=== PATIENT | male | born 1990 | race Caucasian/White ===

== ENCOUNTER 2017-10-11 09:07 | Inpatient (IN) | payer OTHER ==
[2017-10-11 09:26] VITALS: BMI 23.0
--- NOTE | 2017-10-11 09:37 | HP ---
COWS - Scale Resting Pulse: 1= [place] 81-100 Sweatin= Chills/Flushing Restless Observation: 1= Difficult to Sit Still Pupil Size: 0= Normal to Room Light Bone or Joint Aches: 2= Severe Diffuse Aches Runny Nose/ Eye Tearin= Nasal Congestion GI Upset > 30mins: 1= Stomach Cramp Tremor Observation: 2= Slight Tremor Visible Yawning Observation: 1= 1-2x During Session Anxiety or Irritability: 1=Feels Anxious/Irritable Goose Flesh Skin: 0=Smooth Skin COWS Score: 11 CIWA Score - CIWA Score Nausea/Vomitin-Mild Nausea/No Vomiting Muscle Tremors: 4-Moderate,w/Arms Extend Anxiety: 4-Mod. Anxious/Guarded Agitation: 1-Slight > Activity Paroxysmal Sweats: 1-Minimal Palms Moist Orientation: 1-Uncertain about Date Tacttile Disturbances: 1-Very Mild Itch/Numbness Auditory Disturbances: 1-Very Mild Visual Disturbances: 0-None Headache: 2-Mild CIWA-Ar Total Score: 16 Admission ROS BHS - HPI Chief Complaint: I'm just tired, I want to stop using and stop thinking about how to get my drugs Allergies/Adverse Reactions: Allergies Allergy/AdvReac Type Severity Reaction Status Date / Time No Known Allergies Allergy Verified 10/11/17 09:54 History of Present Illness: 27 yo gentleman here for detox from opiates and alprazolam - previous detox here in April 2016, previously tried suboxone program but relapsed. Seizure once at age 16. Exam Limitations: Clinical Condition - Ebola screening Have you traveled outside of the country in the last 21 days: No Have you had contact with anyone from an Ebola affected area: No Have you been sick,other than usual withdrawal symptoms: No Do you have a fever: No - Review of Systems Constitutional: Chills, Loss of Appetite, Changes in sleep, Weakness EENT: reports: Nose Congestion Respiratory: reports: No Symptoms reported Cardiac: reports: No Symptoms Reported GI: reports: Nausea, Poor Appetite : reports: No Symptoms Reported Musculoskeletal: reports: Joint Pain, Muscle Pain Integumentary: reports: No Symptoms Reported Neuro: reports: Headache, Tremors Endocrine: reports: No Symptoms Reported, Change in Weight Psychiatric: reports: Judgement Intact, Mood/Affect Appropiate, Anxious Other Systems: Reviewed and Negative Patient History - Patient Medical History Hx Anemia: No Hx Asthma: No Hx Chronic Obstructive Pulmonary Disease (COPD): No Hx Cancer: No Hx Cardiac Disorders: No Hx Congestive Heart Failure: No Hx Hypertension: No Hx Hypercholesterolemia: No Hx Pacemaker: No HX Cerebrovascular Accident: No Hx Seizures: Yes (one time age 16) Hx Dementia: No Hx Diabetes: No Hx Gastrointestinal Disorders: No Hx Liver Disease: No Hx Genitourinary Disorders: No Hx Sexually Transmitted Disorders: No Hx Renal Disease (ESRD): No Hx Thyroid Disease: No Hx Human Immunodeficiency Virus (HIV): No Hx Hepatitis C: No Hx Depression: Yes (with anxiety, never hospitalized) Hx Suicide Attempt: No Hx Bipolar Disorder: No Hx Schizophrenia: No - Patient Surgical History Past Surgical History: Yes Hx Orthopedic Surgery: Yes (R knee; arthroscopic surgery 2010) Anesthesia Reaction: No - PPD History Previous Implant?: Yes Documented Results: Negative w/proof Implanted On Prior [facility] Admission?: No Date: 03/19/16 PPD to be Administered?: Yes - Reproductive History Patient is a Female of Child Bearing Age (11 -55 yrs old): No (male) - Smoking Cessation Smoking history: Current every day smoker Have you smoked in the past 12 months: Yes Aproximately how many cigarettes per day: 10 Hx Chewing Tobacco Use: No Initiated information on smoking cessation: Yes 'Breaking Loose' booklet given: 10/11/17 (give on floor) - Substance & Tx. History Hx Alcohol Use: No Hx Substance Use: Yes Substance Use Type: Cocaine, Heroin, Marijuana, Opiates, Tranquilizers Hx Substance Use Treatment: Yes (detox, suboxone, outpatient rehab) - Substances Abused Heroin Route: Injection Frequency: Daily Amount used: 2 bundles Age of first use: 20 Date of Last Use: 10/10/17 Alprazolam (Xanax) Route: Oral Frequency: Daily Amount used: 5mg Age of first use: 17 Date of Last Use: 10/10/17 Marijuana/Hashish Route: Smoking Frequency: 1-2 times per week Amount used: 1 joint Age of first use: 14 Date of Last Use: 10/10/17 Crack Route: Smoking Frequency: 1-2 times per week Amount used: $50 Age of first use: 27 Date of Last Use: 10/08/17 Family Disease History - Family Disease History Family Disease History: Diabetes: Mother, Heart Disease: Father (HTN, skin cancer, alcohol/cocaine), CA: Father, Other: Father, Sister (heroin) Admission Physical Exam [facility] - Vital Signs Vital Signs: Vital Signs - 24 hr 10/11/17 09:20 Temperature 98.6 F Pulse Rate 86 Respiratory 16 Rate Blood Pressure 120/70 - Physical General Appearance: Yes: Appropriately Dressed, Moderate Distress, Thin, Tremorous, Anxious HEENTM: Yes: Hearing grossly Normal, Normal ENT Inspection, Normocephalic, Normal Voice, Pharynx Normal, Nasal Congestion Respiratory: Yes: Normal Breath Sounds, No Respiratory Distress Neck: Yes: No masses,lesions,Nodules, Supple Breast: Yes: Breast Exam Deferred Cardiology: Yes: Regular Rhythm, Regular Rate Abdominal: Yes: Non Tender, Flat Genitourinary: Yes: Within Normal Limits Back: Yes: Normal Inspection Musculoskeletal: Yes: full range of Motion, Gait Steady, Back pain, Muscle Pain Extremities: Yes: Normal Capillary Refill, Normal Inspection, Normal Range of Motion Neurological: Yes: Alert, Motor Strength 5/5, Normal Mood/Affect, Normal Response Integumentary: Yes: Normal Color, Warm, Track Tao (right arm - no erythema or abscess noted) Lymphatic: Yes: Within Normal Limits - Diagnostic (1) Opioid dependence with withdrawal Current Visit: Yes Status: Acute (2) Sedative, hypnotic or anxiolytic dependence with withdrawal, uncomplicated Current Visit: Yes Status: Acute (3) Crack cocaine use Current Visit: Yes Status: Acute (4) Marijuana abuse Current Visit: Yes Status: Acute (5) Nicotine dependence Current Visit: Yes Status: Acute Qualifiers: Nicotine product type: cigarettes Substance use status: uncomplicated Qualified Code(s): F17.210 - Nicotine dependence, cigarettes, uncomplicated Cleared for Admission [facility] - Detox or Rehab [facility] Level of Care: Medically Managed Detox Regimen/Protocol: Methadone/Valium [facility] Breath Alcohol Content Breath Alcohol Content: 0 Urine Drug Screen - Results Drug Screen Negative: No Urine Drug Screen Results: THC-Marijuana, PARIS-Cocaine, OPI-Opiates, BZO- Benzodiazepines
[2017-10-11] MEDS ORDERED: IBUPROFEN 400 MG TABLET (FP) PO PRN (09:47)
[2017-10-11] MEDS ORDERED: LOPERAMIDE HCL 2 MG CAPSULE PO PRN (09:47)
[2017-10-11] MEDS ORDERED: MAG HYDROX/AL HYDROX/SIMETH 30 ML UNIT-DOSE CUP PO PRN (09:47)
[2017-10-11] MEDS ORDERED: guaiFENesin/D-METHORPHAN HB 10 ML UNIT-DOSE CUPS PO PRN (09:47)
[2017-10-11] MEDS ORDERED: P-EPHED 60MG/TRIPROLIDI 2.5MG TABLET PO PRN (09:47)
[2017-10-11] MEDS ORDERED: MAGNESIUM HYDROX 2400MG/30ML ORAL SUSPENSION 30 ML CUP PO PRN (09:47)
[2017-10-11] MEDS ORDERED: MENTHOL/PHENOL 1 EACH UD MM PRN (09:47)
[2017-10-11] MEDS ORDERED: MAGNESIUM CITRATE 300 ML BOTTLE PO PRN (09:47)
[2017-10-11] MEDS: PRENATAL VITAMINS W/ FOLIC ACID TABLET (FP) PO SCH (11:29)
[2017-10-11] MEDS ORDERED: METHADONE HCL 10 MG TABLET (FOR DETOX USE ONLY) PO ONE ×2 (12:00→23:00)
[2017-10-11] MEDS ORDERED: diazePAM 5 MG TABLET PO ONE (12:00)
[2017-10-11] MEDS: diazePAM 5 MG TABLET PO SCH ×2 (14:42→22:40)
[2017-10-11] MEDS: diazePAM 5 MG TABLET PO PRN (17:08)
[2017-10-11] MEDS: hydrOXYzine PAMOATE 25 MG CAPSULE (FP) PO PRN (19:23)
[2017-10-11] MEDS: THIAMINE HCL 100 MG TABLET (FP) PO SCH (22:39)
[2017-10-12 00:20] LABS: URINE APPEARANCE SLCLOUDY; URINE BILIRUBIN NEGATIVE (NEGATIVE); URINE BLOOD NEGATIVE (NEGATIVE); URINE COLOR DKYELLOW; URINE GLUCOSE (UA) NEGATIVE (NEGATIVE); URINE KETONE NEGATIVE (NEGATIVE); URINE LEUK ESTERASE TRACE (NEGATIVE); URINE NITRITE POSITIVE (NEGATIVE); URINE PROTEIN NEGATIVE (NEGATIVE); URINE UROBILINOGEN NEGATIVE mg/dL (0.2-1.0)
[2017-10-12 00:45] LABS: URINE BACTERIA RARE /hpf (NONE SEEN); URINE MUCUS RARE; URINE RBC 1 /hpf (0-3); URINE WBC 5 /hpf (3-5)
[2017-10-12] MEDS: diazePAM 5 MG TABLET PO SCH ×4 (05:30→22:30)
--- NOTE | 2017-10-12 08:30 | CONSULT ---
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 Refer to adiction counselor's note for further information Medical History: Significant for history of one seizure episode at age 16 and arthroscopic surgery right knee 4 years ago. Smokes 10 cigarettes daily Psychiatric History: Patient's history remains consistent. He denies history of psychiatric hospitalizations.He endorses an enduring history of depression as early as age 9 (treated with zoloft at the time).Discontinued treatment due to an intolerable side effect (suicidal ideation).No recent contact with mental health care providers.Off medications for years.Mr Del Rosario indicates that he was able to manage himself in the community without any significant crisis.No history of suicide attempts. At present reports feeling well but sleeping poorly. Request to be ordered Ambien as he responded favorably to it in the past (effectiveness & tolerability) Physical/Sexual Abuse/Trauma History: Denies history of verbal, physical or sexual abuse as well as DV relationship. No service Additional Comment: Reports history of multiple previoys arrests including one felony conviction. Claims that the felony charged was dropped and he has nothing in his record Mental Status Exam - Mental Status Exam Alert and Oriented to: Time, Place, Person Cognitive Function: Fair Patient Appearance: Well Groomed Mood: Hopeful, Euthymic Patient Behavior: Cooperative Speech Pattern: Clear Voice Loudness: Normal Thought Process: Intact, Goal Oriented Hallucinations: Denies Suicidal Ideation: Denies Homicidal Ideation: Denies Insight/Judgement: Poor Sleep: Poorly Appetite: Good Muscle strength/Tone: Normal Gait/Station: Normal Psychiatric Findings - Problem List ([place] 1, 2,3) (1) Dysthymic disorder Current Visit: Yes Status: Chronic (2) Substance-induced sleep disorder Current Visit: No Status: Acute (3) Opioid dependence with withdrawal Current Visit: Yes Status: Acute (4) Sedative, hypnotic or anxiolytic dependence with withdrawal, uncomplicated Current Visit: Yes Status: Acute (5) Cocaine dependence Current Visit: Yes Status: Acute (6) Cannabis abuse Current Visit: Yes Status: Acute (7) Nicotine dependence Current Visit: Yes Status: Acute Qualifiers: Nicotine product type: cigarettes Substance use status: uncomplicated Qualified Code(s): F17.210 - Nicotine dependence, cigarettes, uncomplicated (8) History of arthroscopic knee surgery Current Visit: Yes Status: Chronic - Initial Treatment Plan Initial Treatment Plan: 1) Start Ambien 10 mg po HS prn for insomnia. 2) continue inpatient detoxification
--- NOTE | 2017-10-12 08:56 | EKG ---
Test Reason : Blood Pressure : / mmHG Vent. Rate : 064 BPM Atrial Rate : 064 BPM P-R Int : 144 ms QRS Dur : 084 ms QT Int : 398 ms P-R-T Axes : 062 042 043 degrees QTc Int : 410 ms NORMAL SINUS RHYTHM NORMAL ECG NO PREVIOUS ECGS AVAILABLE Confirmed by RENAE GARCIAS MD ([id number]) on 10/12/2017 8:55:43 AM Referred By: Confirmed By:RENAE GARCIAS MD
[2017-10-12] MEDS ORDERED: METHADONE HCL 10 MG TABLET (FOR DETOX USE ONLY) PO SCH (10:00)
[2017-10-12 10:11] LABS: MCH 27.9 pg (25.7-33.7); MCHC 33.5 g/dl (32.0-35.9); MEAN CELL VOLUME 83.3 fl (80-96); PLATELET COUNT 349 K/MM3 (134-434); RDW 13.3 % (11.9-15.9); WHITE BLOOD COUNT 12.3 K/mm3 (4.0-10.0)
[2017-10-12 10:17] LABS: ALBUMIN 3.9 g/dl (3.4-5.0); ALK PHOS 124 U/L (45-117); ANION GAP 8 (8-16); BILIRUBIN,TOTAL 0.8 mg/dL (0.2-1.0); CALCIUM 9.8 mg/dL (8.5-10.1); CO2 29 mmol/L (21-32); CREATININE 0.9 mg/dL (0.7-1.3); GLUCOSE,RANDOM 96 mg/dL (74-106); SGOT/AST 16 U/L (15-37); SGPT/ALT 32 U/L (12-78)
[2017-10-12] MEDS: diazePAM 5 MG TABLET PO PRN ×2 (10:52→17:03)
[2017-10-12] MEDS: PRENATAL VITAMINS W/ FOLIC ACID TABLET (FP) PO SCH (10:53)
[2017-10-12 11:19] LABS: HIV 1 & 2 AB NEGATIVE; HIV 1 AGp24 NEGATIVE
[2017-10-12] MEDS: NICOTINE POLACRILEX 4 MG GUM BUC PRN (12:17)
[2017-10-12 13:24] LABS: URINE LEUK ESTERASE NEGATIVE (NEGATIVE)
--- NOTE | 2017-10-12 14:35 | PN ---
S CIWA - CIWA Score Nausea/Vomitin-No Nausea/No Vomiting Muscle Tremors: 4-Moderate,w/Arms Extend Anxiety: 4-Mod. Anxious/Guarded Agitation: 4-Moderately Restless Paroxysmal Sweats: No Perspiration Orientation: 0-Oriented Tacttile Disturbances: 0-None Auditory Disturbances: 0-None Visual Disturbances: 0-None Headache: 2-Mild CIWA-Ar Total Score: 14 BHS COWS - Scale Resting Pulse: 0= [place] 80 or Below Sweatin=Flushed/Facial Moisture Restless Observation: 3= Extraneous Movement Pupil Size: 0= Normal to Room Light Bone or Joint Aches: 2= Severe Diffuse Aches Runny Nose/ Eye Tearin= Runny Nose/Eyes GI Upset > 30mins: 3= Vomiting/Diarrhea Tremor Observation of Outstretched Hands: 2= Slight Tremor Visible Yawning Observation: 0= None Anxiety or Irritability: 2=Irritable/Anxious Goose Flesh Skin: 0=Smooth Skin COWS Score: 16 BHS Progress Note (SOAP) Subjective: Interrupted sleep, chills, body ache, diarrhea, sweating Objective: 10/12/17 14:29 Last Vital Signs Temp Pulse Resp BP Pulse Ox 97.7 F 79 18 111/73 10/12/17 14:11 10/12/17 14:11 10/12/17 14:11 10/12/17 14:11 Laboratory Tests 10/11/17 10/12/17 10/12/17 14:30 06:00 06:00 WBC 12.3 H RBC 5.63 H Hgb 15.7 Hct 46.9 MCV 83.3 MCH 27.9 MCHC 33.5 RDW 13.3 Plt Count 349 D MPV 8.0 Sodium Potassium Chloride Carbon Dioxide Anion Gap BUN Creatinine Creat Clearance w eGFR Random Glucose Calcium Total Bilirubin AST ALT Alkaline Phosphatase Total Protein Albumin Urine Color Dkyellow Urine Appearance Slcloudy Urine pH 6.0 Ur Specific [place] 1.025 Urine Protein Negative Urine Glucose (UA) Negative Urine Ketones Negative Urine Blood Negative Urine Nitrite Positive Urine Bilirubin Negative Urine Urobilinogen Negative Ur Leukocyte Esterase Negative Urine WBC (Auto) 5 Urine RBC (Auto) 1 Ur Epithelial Cells Rare Urine Bacteria Rare Urine Mucus Rare RPR Titer HIV 1&2 Antibody Screen Negative HIV P24 Antigen Negative 10/12/17 10/12/17 06:00 06:00 WBC RBC Hgb Hct MCV MCH MCHC RDW Plt Count MPV Sodium 140 Potassium 4.4 Chloride 103 Carbon Dioxide 29 Anion Gap 8 BUN 11 D Creatinine 0.9 Creat Clearance w eGFR > 60 Random Glucose 96 Calcium 9.8 Total Bilirubin 0.8 D AST 16 D ALT 32 D Alkaline Phosphatase 124 H Total Protein 8.0 Albumin 3.9 Urine Color Urine Appearance Urine pH Ur Specific [place] Urine Protein Urine Glucose (UA) Urine Ketones Urine Blood Urine Nitrite Urine Bilirubin Urine Urobilinogen Ur Leukocyte Esterase Urine WBC (Auto) Urine RBC (Auto) Ur Epithelial Cells Urine Bacteria Urine Mucus RPR Titer Nonreactive HIV 1&2 Antibody Screen HIV P24 Antigen Labs noted: wbc 12.3, UA: nitrite positive Assessment: 10/12/17 14:35 Withdrawal symptoms Noted with leukocytosis and UTI Plan: Continue detox Leukocytosis: most likely secondary to UTI Acute UTI: encouraged to drink lots of water (water pitcher ordered), send urine culture stat, start cipro 500mg PO q12hr x 10 days, adjust antibiotic if warranted based upon urine c&s result, follow up with PCP in 1-2 weeks post antibiotic completion for referral to Urologist
[2017-10-12] MEDS ORDERED: CIPROFLOXACIN 500 MG TABLET (RESTRICTED TO ID) PO SCH (14:45)
[2017-10-12] MEDS: LEVOFLOXACIN 500 MG TABLET (FP) PO SCH (17:03)
[2017-10-12] MEDS: ZOLPIDEM TARTRATE 5 MG TABLET PO PRN (22:30)
[2017-10-12] MEDS: THIAMINE HCL 100 MG TABLET (FP) PO SCH (22:30)
[2017-10-13] MEDS: diazePAM 5 MG TABLET PO PRN ×2 (05:28→14:35)
[2017-10-13] MEDS: LEVOFLOXACIN 500 MG TABLET (FP) PO SCH (05:28)
[2017-10-13] MEDS: PRENATAL VITAMINS W/ FOLIC ACID TABLET (FP) PO SCH (10:43)
[2017-10-13] MEDS: diazePAM 5 MG TABLET PO SCH ×2 (10:44→22:46)
[2017-10-13] MEDS: METHADONE HCL 5 MG TABLET (FOR DETOX USE ONLY) PO SCH (10:44)
--- NOTE | 2017-10-13 12:42 | PN ---
[facility] CIWA - CIWA Score Nausea/Vomitin-No Nausea/No Vomiting Muscle Tremors: 4-Moderate,w/Arms Extend Anxiety: 4-Mod. Anxious/Guarded Agitation: 2 Paroxysmal Sweats: 3 Orientation: 0-Oriented Tacttile Disturbances: 2-Mild Itch/Numbness/Burn Auditory Disturbances: 2-Mild Harshness/Frighten Visual Disturbances: 0-None Headache: 0-None Present CIWA-Ar Total Score: 17 S COWS - Scale Resting Pulse: 0= [place] 80 or Below Sweatin=Flushed/Facial Moisture Restless Observation: 1= Difficult to Sit Still Pupil Size: 0= Normal to Room Light Bone or Joint Aches: 0= None Runny Nose/ Eye Tearin= None GI Upset > 30mins: 1= Stomach Cramp Tremor Observation of Outstretched Hands: 2= Slight Tremor Visible Yawning Observation: 1= 1-2x During Session Anxiety or Irritability: 2=Irritable/Anxious Goose Flesh Skin: 3=Piloerection COWS Score: 12 [facility] Progress Note (SOAP) Subjective: Tremors, Interrupted Sleep, Sweating, Gooseflesh, Chills. Objective: PT. A & O X 3, OBSERVED AMBULATING ON UNIT. NO ACUTE DISTRESS. 10/13/17 12:39 Vital Signs Temperature 97.8 F 10/13/17 09:27 Pulse Rate 72 10/13/17 09:27 Respiratory Rate 18 10/13/17 09:27 Blood Pressure 126/72 10/13/17 09:27 O2 Sat by Pulse Oximetry (%) Laboratory Tests 10/11/17 10/12/17 10/12/17 14:30 06:00 06:00 WBC 12.3 H RBC 5.63 H Hgb 15.7 Hct 46.9 MCV 83.3 MCH 27.9 MCHC 33.5 RDW 13.3 Plt Count 349 D MPV 8.0 Sodium Potassium Chloride Carbon Dioxide Anion Gap BUN Creatinine Creat Clearance w eGFR Random Glucose Calcium Total Bilirubin AST ALT Alkaline Phosphatase Total Protein Albumin Urine Color Dkyellow Urine Appearance Slcloudy Urine pH 6.0 Ur Specific [place] 1.025 Urine Protein Negative Urine Glucose (UA) Negative Urine Ketones Negative Urine Blood Negative Urine Nitrite Positive Urine Bilirubin Negative Urine Urobilinogen Negative Ur Leukocyte Esterase Negative Urine WBC (Auto) 5 Urine RBC (Auto) 1 Ur Epithelial Cells Rare Urine Bacteria Rare Urine Mucus Rare RPR Titer HIV 1&2 Antibody Screen Negative HIV P24 Antigen Negative 10/12/17 10/12/17 06:00 06:00 WBC RBC Hgb Hct MCV MCH MCHC RDW Plt Count MPV Sodium 140 Potassium 4.4 Chloride 103 Carbon Dioxide 29 Anion Gap 8 BUN 11 D Creatinine 0.9 Creat Clearance w eGFR > 60 Random Glucose 96 Calcium 9.8 Total Bilirubin 0.8 D AST 16 D ALT 32 D Alkaline Phosphatase 124 H Total Protein 8.0 Albumin 3.9 Urine Color Urine Appearance Urine pH Ur Specific [place] Urine Protein Urine Glucose (UA) Urine Ketones Urine Blood Urine Nitrite Urine Bilirubin Urine Urobilinogen Ur Leukocyte Esterase Urine WBC (Auto) Urine RBC (Auto) Ur Epithelial Cells Urine Bacteria Urine Mucus RPR Titer Nonreactive HIV 1&2 Antibody Screen HIV P24 Antigen LABS NOTED. RESULTS OF URINE CULTURE PENDING. CBC FOR REPEAT TOMORROW AM. 10/13/17 12:41 Assessment: 10/13/17 12:39 WITHDRAWAL SYMPTOMS. LEUKOCYTOSIS. 10/13/17 12:42 Plan: CONTINUE DETOX. INCREASE DAILY PO FLUID INTAKE.
[2017-10-13] MEDS: ZOLPIDEM TARTRATE 5 MG TABLET PO PRN (22:46)
[2017-10-13] MEDS: THIAMINE HCL 100 MG TABLET (FP) PO SCH (22:46)
[2017-10-13] MEDS: NICOTINE POLACRILEX 4 MG GUM BUC PRN (23:36)
[2017-10-14] MEDS: hydrOXYzine PAMOATE 25 MG CAPSULE (FP) PO PRN (00:52)
[2017-10-14] MEDS: LEVOFLOXACIN 500 MG TABLET (FP) PO SCH (05:34)
--- NOTE | 2017-10-14 09:16 | PN ---
[facility] Progress Note (SOAP) Subjective: body ache sweating irritable insomnia Objective: 10/14/17 09:15 Vital Signs Temperature 96.9 F L 10/14/17 06:35 Pulse Rate 57 L 10/14/17 06:35 Respiratory Rate 18 10/14/17 06:35 Blood Pressure 108/57 10/14/17 06:35 O2 Sat by Pulse Oximetry (%) Laboratory Last Values WBC 12.3 K/mm3 (4.0-10.0) H 10/12/17 06:00 RBC 5.63 M/mm3 (4.00-5.60) H 10/12/17 06:00 Hgb 15.7 GM/dL (11.7-16.9) 10/12/17 06:00 Hct 46.9 % (35.4-49) 10/12/17 06:00 MCV 83.3 fl (80-96) 10/12/17 06:00 MCH 27.9 pg (25.7-33.7) 10/12/17 06:00 MCHC 33.5 g/dl (32.0-35.9) 10/12/17 06:00 RDW 13.3 % (11.9-15.9) 10/12/17 06:00 Plt Count 349 K/MM3 (134-434) D 10/12/17 06:00 MPV 8.0 fl (7.5-11.1) 10/12/17 06:00 Sodium 140 mmol/L (136-145) 10/12/17 06:00 Potassium 4.4 mmol/L (3.5-5.1) 10/12/17 06:00 Chloride 103 mmol/L (98-107) 10/12/17 06:00 Carbon Dioxide 29 mmol/L (21-32) 10/12/17 06:00 Anion Gap 8 (8-16) 10/12/17 06:00 BUN 11 mg/dL (7-18) D 10/12/17 06:00 Creatinine 0.9 mg/dL (0.7-1.3) 10/12/17 06:00 Creat Clearance w eGFR > 60 (>60) 10/12/17 06:00 Random Glucose 96 mg/dL (74-106) 10/12/17 06:00 Calcium 9.8 mg/dL (8.5-10.1) 10/12/17 06:00 Total Bilirubin 0.8 mg/dL (0.2-1.0) D 10/12/17 06:00 AST 16 U/L (15-37) D 10/12/17 06:00 ALT 32 U/L (12-78) D 10/12/17 06:00 Alkaline Phosphatase 124 U/L (45-117) H 10/12/17 06:00 Total Protein 8.0 g/dl (6.4-8.2) 10/12/17 06:00 Albumin 3.9 g/dl (3.4-5.0) 10/12/17 06:00 Urine Color Dkyellow 10/11/17 14:30 Urine Appearance Slcloudy 10/11/17 14:30 Urine pH 6.0 (5.0-8.0) 10/11/17 14:30 Ur Specific [place] 1.025 (1.001-1.035) 10/11/17 14:30 Urine Protein Negative (NEGATIVE) 10/11/17 14:30 Urine Glucose (UA) Negative (NEGATIVE) 10/11/17 14:30 Urine Ketones Negative (NEGATIVE) 10/11/17 14:30 Urine Blood Negative (NEGATIVE) 10/11/17 14:30 Urine Nitrite Positive (NEGATIVE) 10/11/17 14:30 Urine Bilirubin Negative (NEGATIVE) 10/11/17 14:30 Urine Urobilinogen Negative mg/dL (0.2-1.0) 10/11/17 14:30 Ur Leukocyte Esterase Negative (NEGATIVE) 10/11/17 14:30 Urine WBC (Auto) 5 /hpf (3-5) 10/11/17 14:30 Urine RBC (Auto) 1 /hpf (0-3) 10/11/17 14:30 Ur Epithelial Cells Rare /HPF (FEW) 10/11/17 14:30 Urine Bacteria Rare /hpf (NONE SEEN) 10/11/17 14:30 Urine Mucus Rare 10/11/17 14:30 RPR Titer Nonreactive (NONREACTIVE) 10/12/17 06:00 HIV 1&2 Antibody Screen Negative 10/12/17 06:00 HIV P24 Antigen Negative 10/12/17 06:00 lab noted Assessment: 10/14/17 09:15 withdrawal sx Plan: continue detox
[2017-10-14 10:01] LABS: MCH 28.2 pg (25.7-33.7); MCHC 34.1 g/dl (32.0-35.9); MEAN CELL VOLUME 82.7 fl (80-96); MEAN PLT VOLUME 7.1 fl (7.5-11.1); PLATELET COUNT 353 K/MM3 (134-434); RDW 13.3 % (11.9-15.9); WHITE BLOOD COUNT 10.4 K/mm3 (4.0-10.0)
[2017-10-14] MEDS: PRENATAL VITAMINS W/ FOLIC ACID TABLET (FP) PO SCH (10:42)
[2017-10-14] MEDS: diazePAM 5 MG TABLET PO SCH ×2 (10:42→22:09)
[2017-10-14] MEDS: METHADONE HCL 5 MG TABLET (FOR DETOX USE ONLY) PO SCH (10:42)
[2017-10-14 15:04] LABS: ACANTHOCYTES 0; ANISOCYTOSIS 0; BURR CELLS 0; CABBOT RINGS 0; HELMET CELLS 0; HOWELL-JOLLY BODIES 0; HYPOCHROMIA 0; MACROCYTOSIS 0; METAMYELOCYTE 0 % (0-2); MICROCYTOSIS 0; MYELOCYTE 1 % (0-2); OVALOCYTE 0; POIKILOCYTOSIS 0; POLYCHROMASIA 0; REACTIVE LYMPHOCYTES 5 % (0-80); SCHISTOCYTES 0; SPHEROCYTE 0; STOMATOCYTE 0; TARGET CELLS 0; TEAR DROP CELLS 0; TOXIC GRANULATION 0
[2017-10-14 15:37] LABS: PLATELET ESTIMATE ADEQUATE; TOTAL CELLS COUNTED 99
[2017-10-14] MEDS: ZOLPIDEM TARTRATE 5 MG TABLET PO PRN (22:09)
[2017-10-14] MEDS: THIAMINE HCL 100 MG TABLET (FP) PO SCH (22:09)
[2017-10-15] MEDS: ACETAMINOPHEN 325 MG TABLET (FP) PO PRN ×2 (03:25→18:27)
[2017-10-15] MEDS: LEVOFLOXACIN 500 MG TABLET (FP) PO SCH (06:39)
[2017-10-15] MEDS ORDERED: diazePAM 5 MG TABLET PO SCH (10:00)
[2017-10-15] MEDS ORDERED: METHADONE HCL 10 MG TABLET (FOR DETOX USE ONLY) PO SCH (10:00)
[2017-10-15] MEDS: PRENATAL VITAMINS W/ FOLIC ACID TABLET (FP) PO SCH (10:38)
--- NOTE | 2017-10-15 12:02 | PN ---
[facility] Progress Note (SOAP) Subjective: DECREASED ANXIETY,SWEATS. FATIGUE. Objective: 10/15/17 12:01 Vital Signs Temperature 97.5 F L 10/15/17 09:54 Pulse Rate 65 10/15/17 09:54 Respiratory Rate 18 10/15/17 09:54 Blood Pressure 118/74 10/15/17 09:54 O2 Sat by Pulse Oximetry (%) Laboratory Last Values WBC 10.4 K/mm3 (4.0-10.0) H 10/14/17 07:00 RBC 5.28 M/mm3 (4.00-5.60) 10/14/17 07:00 Hgb 14.9 GM/dL (11.7-16.9) 10/14/17 07:00 Hct 43.6 % (35.4-49) 10/14/17 07:00 MCV 82.7 fl (80-96) 10/14/17 07:00 MCH 28.2 pg (25.7-33.7) 10/14/17 07:00 MCHC 34.1 g/dl (32.0-35.9) 10/14/17 07:00 RDW 13.3 % (11.9-15.9) 10/14/17 07:00 Plt Count 353 K/MM3 (134-434) 10/14/17 07:00 MPV 7.1 fl (7.5-11.1) L D 10/14/17 07:00 Total Counted 99 10/14/17 07:00 Neutrophils % No Result Required. 10/14/17 07:00 Neutrophils % (Manual) 66.7 % (42.8-82.8) 10/14/17 07:00 Band Neutrophils % 0.0 % 10/14/17 07:00 Lymphocytes % No Result Required. 10/14/17 07:00 Lymphocytes % (Manual) 21.2 % (8-40) 10/14/17 07:00 Monocytes % (Manual) 4 % (3.8-10.2) 10/14/17 07:00 Eosinophils % (Manual) 2.0 % (0-4.5) 10/14/17 07:00 Basophils % (Manual) 0.0 % (0-2.0) 10/14/17 07:00 Myelocytes % (Man) 1 % (0-2) 10/14/17 07:00 Metamyelocytes 0 % (0-2) 10/14/17 07:00 Hypochromia 0 10/14/17 07:00 Toxic Granulation 0 10/14/17 07:00 Dohle Bodies 0 10/14/17 07:00 Platelet Estimate Adequate 10/14/17 07:00 Platelet Comment Retail Sales [employer] 10/14/17 07:00 Polychromasia 0 10/14/17 07:00 Poikilocytosis 0 10/14/17 07:00 Basophilic Stippling 0 10/14/17 07:00 Anisocytosis 0 10/14/17 07:00 Microcytosis 0 10/14/17 07:00 Macrocytosis 0 10/14/17 07:00 Spherocytes 0 10/14/17 07:00 Sickle Cells 0 10/14/17 07:00 Target Cells 0 10/14/17 07:00 Tear Drop Cells 0 10/14/17 07:00 Ovalocytes 0 10/14/17 07:00 Stomatocytes 0 10/14/17 07:00 Helmet Cells 0 10/14/17 07:00 [place] Bodies 0 10/14/17 07:00 [place] Rings 0 10/14/17 07:00 Luz Cells 0 10/14/17 07:00 Acanthocytes (Spur) 0 10/14/17 07:00 Fragmented RBCs 0 10/14/17 07:00 Schistocytes 0 10/14/17 07:00 Sodium 140 mmol/L (136-145) 10/12/17 06:00 Potassium 4.4 mmol/L (3.5-5.1) 10/12/17 06:00 Chloride 103 mmol/L (98-107) 10/12/17 06:00 Carbon Dioxide 29 mmol/L (21-32) 10/12/17 06:00 Anion Gap 8 (8-16) 10/12/17 06:00 BUN 11 mg/dL (7-18) D 10/12/17 06:00 Creatinine 0.9 mg/dL (0.7-1.3) 10/12/17 06:00 Creat Clearance w eGFR > 60 (>60) 10/12/17 06:00 Random Glucose 96 mg/dL (74-106) 10/12/17 06:00 Calcium 9.8 mg/dL (8.5-10.1) 10/12/17 06:00 Total Bilirubin 0.8 mg/dL (0.2-1.0) D 10/12/17 06:00 AST 16 U/L (15-37) D 10/12/17 06:00 ALT 32 U/L (12-78) D 10/12/17 06:00 Alkaline Phosphatase 124 U/L (45-117) H 10/12/17 06:00 Total Protein 8.0 g/dl (6.4-8.2) 10/12/17 06:00 Albumin 3.9 g/dl (3.4-5.0) 10/12/17 06:00 Urine Color Dkyellow 10/11/17 14:30 Urine Appearance Slcloudy 10/11/17 14:30 Urine pH 6.0 (5.0-8.0) 10/11/17 14:30 Ur Specific [place] 1.025 (1.001-1.035) 10/11/17 14:30 Urine Protein Negative (NEGATIVE) 10/11/17 14:30 Urine Glucose (UA) Negative (NEGATIVE) 10/11/17 14:30 Urine Ketones Negative (NEGATIVE) 10/11/17 14:30 Urine Blood Negative (NEGATIVE) 10/11/17 14:30 Urine Nitrite Positive (NEGATIVE) 10/11/17 14:30 Urine Bilirubin Negative (NEGATIVE) 10/11/17 14:30 Urine Urobilinogen Negative mg/dL (0.2-1.0) 10/11/17 14:30 Ur Leukocyte Esterase Negative (NEGATIVE) 10/11/17 14:30 Urine WBC (Auto) 5 /hpf (3-5) 10/11/17 14:30 Urine RBC (Auto) 1 /hpf (0-3) 10/11/17 14:30 Ur Epithelial Cells Rare /HPF (FEW) 10/11/17 14:30 Urine Bacteria Rare /hpf (NONE SEEN) 10/11/17 14:30 Urine Mucus Rare 10/11/17 14:30 RPR Titer Nonreactive (NONREACTIVE) 10/12/17 06:00 HIV 1&2 Antibody Screen Negative 10/12/17 06:00 HIV P24 Antigen Negative 10/12/17 06:00 Assessment: 10/15/17 12:02 WITHDRAWAL SX Plan: CONTINUE DETOX
[2017-10-15] MEDS: ZOLPIDEM TARTRATE 5 MG TABLET PO PRN (22:08)
[2017-10-15] MEDS: hydrOXYzine PAMOATE 25 MG CAPSULE (FP) PO PRN (22:08)
[2017-10-15] MEDS: THIAMINE HCL 100 MG TABLET (FP) PO SCH (22:08)
[2017-10-16] MEDS: LEVOFLOXACIN 500 MG TABLET (FP) PO SCH (05:31)
[2017-10-16] MEDS ORDERED: METHADONE HCL 5 MG TABLET (FOR DETOX USE ONLY) PO SCH (06:00)
[2017-10-16 06:23] VITALS: BP 103/60; PULSE 63; TEMP 97.2
--- NOTE | 2017-10-16 11:21 | DS ---
[facility] Detox Discharge Summary Admission Date: 10/11/17 Discharge Date: 10/16/17 - History Present History: Cannabis Dependence, Cocaine Dependence, Opioid Dependence, Sedative Dependence Additional Comments: DETOX COMPLETED. ALERT O X 3. NAD. PT INSTRUCTED TO FOLLOW UP WITH PMD DR BRASHER AT [place], [place] FOR MEDICAL MANAGEMENT. Pertinent Past History: HX ARTHROSCOPIC SX KNEE - Physical Exam Results Vital Signs: Vital Signs Temperature 97.2 F L 10/16/17 06:23 Pulse Rate 63 10/16/17 06:23 Respiratory Rate 16 10/16/17 06:23 Blood Pressure 103/60 10/16/17 06:23 O2 Sat by Pulse Oximetry (%) Pertinent Admission Physical Exam Findings: WITHDRAWAL SX Laboratory Last Values WBC 10.4 K/mm3 (4.0-10.0) H 10/14/17 07:00 RBC 5.28 M/mm3 (4.00-5.60) 10/14/17 07:00 Hgb 14.9 GM/dL (11.7-16.9) 10/14/17 07:00 Hct 43.6 % (35.4-49) 10/14/17 07:00 MCV 82.7 fl (80-96) 10/14/17 07:00 MCH 28.2 pg (25.7-33.7) 10/14/17 07:00 MCHC 34.1 g/dl (32.0-35.9) 10/14/17 07:00 RDW 13.3 % (11.9-15.9) 10/14/17 07:00 Plt Count 353 K/MM3 (134-434) 10/14/17 07:00 MPV 7.1 fl (7.5-11.1) L D 10/14/17 07:00 Total Counted 99 10/14/17 07:00 Neutrophils % No Result Required. 10/14/17 07:00 Neutrophils % (Manual) 66.7 % (42.8-82.8) 10/14/17 07:00 Band Neutrophils % 0.0 % 10/14/17 07:00 Lymphocytes % No Result Required. 10/14/17 07:00 Lymphocytes % (Manual) 21.2 % (8-40) 10/14/17 07:00 Monocytes % (Manual) 4 % (3.8-10.2) 10/14/17 07:00 Eosinophils % (Manual) 2.0 % (0-4.5) 10/14/17 07:00 Basophils % (Manual) 0.0 % (0-2.0) 10/14/17 07:00 Myelocytes % (Man) 1 % (0-2) 10/14/17 07:00 Metamyelocytes 0 % (0-2) 10/14/17 07:00 Hypochromia 0 10/14/17 07:00 Toxic Granulation 0 10/14/17 07:00 Dohle Bodies 0 10/14/17 07:00 Platelet Estimate Adequate 10/14/17 07:00 Platelet Comment High Scaler 10/14/17 07:00 Polychromasia 0 10/14/17 07:00 Poikilocytosis 0 10/14/17 07:00 Basophilic Stippling 0 10/14/17 07:00 Anisocytosis 0 10/14/17 07:00 Microcytosis 0 10/14/17 07:00 Macrocytosis 0 10/14/17 07:00 Spherocytes 0 10/14/17 07:00 Sickle Cells 0 10/14/17 07:00 Target Cells 0 10/14/17 07:00 Tear Drop Cells 0 10/14/17 07:00 Ovalocytes 0 10/14/17 07:00 Stomatocytes 0 10/14/17 07:00 Helmet Cells 0 10/14/17 07:00 [place] Bodies 0 10/14/17 07:00 [place] Rings 0 10/14/17 07:00 Luz Cells 0 10/14/17 07:00 Acanthocytes (Spur) 0 10/14/17 07:00 Fragmented RBCs 0 10/14/17 07:00 Schistocytes 0 10/14/17 07:00 Sodium 140 mmol/L (136-145) 10/12/17 06:00 Potassium 4.4 mmol/L (3.5-5.1) 10/12/17 06:00 Chloride 103 mmol/L (98-107) 10/12/17 06:00 Carbon Dioxide 29 mmol/L (21-32) 10/12/17 06:00 Anion Gap 8 (8-16) 10/12/17 06:00 BUN 11 mg/dL (7-18) D 10/12/17 06:00 Creatinine 0.9 mg/dL (0.7-1.3) 10/12/17 06:00 Creat Clearance w eGFR > 60 (>60) 10/12/17 06:00 Random Glucose 96 mg/dL (74-106) 10/12/17 06:00 Calcium 9.8 mg/dL (8.5-10.1) 10/12/17 06:00 Total Bilirubin 0.8 mg/dL (0.2-1.0) D 10/12/17 06:00 AST 16 U/L (15-37) D 10/12/17 06:00 ALT 32 U/L (12-78) D 10/12/17 06:00 Alkaline Phosphatase 124 U/L (45-117) H 10/12/17 06:00 Total Protein 8.0 g/dl (6.4-8.2) 10/12/17 06:00 Albumin 3.9 g/dl (3.4-5.0) 10/12/17 06:00 Urine Color Dkyellow 10/11/17 14:30 Urine Appearance Slcloudy 10/11/17 14:30 Urine pH 6.0 (5.0-8.0) 10/11/17 14:30 Ur Specific [place] 1.025 (1.001-1.035) 10/11/17 14:30 Urine Protein Negative (NEGATIVE) 10/11/17 14:30 Urine Glucose (UA) Negative (NEGATIVE) 10/11/17 14:30 Urine Ketones Negative (NEGATIVE) 10/11/17 14:30 Urine Blood Negative (NEGATIVE) 10/11/17 14:30 Urine Nitrite Positive (NEGATIVE) 10/11/17 14:30 Urine Bilirubin Negative (NEGATIVE) 10/11/17 14:30 Urine Urobilinogen Negative mg/dL (0.2-1.0) 10/11/17 14:30 Ur Leukocyte Esterase Negative (NEGATIVE) 10/11/17 14:30 Urine WBC (Auto) 5 /hpf (3-5) 10/11/17 14:30 Urine RBC (Auto) 1 /hpf (0-3) 10/11/17 14:30 Ur Epithelial Cells Rare /HPF (FEW) 10/11/17 14:30 Urine Bacteria Rare /hpf (NONE SEEN) 10/11/17 14:30 Urine Mucus Rare 10/11/17 14:30 RPR Titer Nonreactive (NONREACTIVE) 10/12/17 06:00 HIV 1&2 Antibody Screen Negative 10/12/17 06:00 HIV P24 Antigen Negative 10/12/17 06:00 - Treatment Hospital Course: Detox Protocol Followed, Detoxed Safely, Responded well, Discharged Condition Good - Medication Discharge Medications: Ambulatory Orders Levofloxacin [Levaquin -] 500 mg PO DAILY #7 tablet 10/16/17 - Diagnosis (1) Opioid dependence with withdrawal Status: Acute (2) Nicotine dependence Status: Acute Qualifiers: Nicotine product type: cigarettes Substance use status: in withdrawal Qualified Code(s): F17.213 - Nicotine dependence, cigarettes, with withdrawal (3) Sedative, hypnotic or anxiolytic dependence with withdrawal, uncomplicated Status: Acute (4) Cannabis dependence Status: Acute (5) Cocaine dependence Status: Acute Qualifiers: Substance use status: uncomplicated Qualified Code(s): F14.20 - Cocaine dependence, uncomplicated (6) UTI (urinary tract infection) Status: Acute (7) History of arthroscopic knee surgery Status: Chronic (8) Leukocytosis Status: Acute - AMA Did Patient Leave Against Medical Advice: No
== END 2017-10-16 09:10 | disposition home or self-care (01) | DRG 897 ==
LOC: YASAS 09:07 → Y3N 10:39
PROVIDERS: ADMIT Internal Medicine; ATTEND Internal Medicine
PROC: HZ2ZZZZ Detoxification Services for Substance Abuse Treatment (ICD-10-PCS; principal; 2017-10-11)
DX: F11.23 Opioid dependence with withdrawal (principal); F14.20 Cocaine dependence, uncomplicated; F19.282 Other psychoactive substance dependence with psychoactive substance-induced sleep disorder; N39.0 Urinary tract infection, site not specified; F13.230 Sedative, hypnotic or anxiolytic dependence with withdrawal, uncomplicated; F12.20 Cannabis dependence, uncomplicated; F34.1 Dysthymic disorder; F41.8 Other specified anxiety disorders; D72.829 Elevated white blood cell count, unspecified; Z98.890 Other specified postprocedural states
CPT/HCPCS: 36415; 80053; 81003; 81015; 85025; 85027; 86593; 87086; 87389; 93005; 93010

== ENCOUNTER 2018-02-24 10:58 | Inpatient (IN) | payer OTHER ==
[2018-02-24 11:32] VITALS: BMI 24.3
--- NOTE | 2018-02-24 13:12 | HP ---
COWS - Scale Resting Pulse: 0= [place] 80 or Below Sweatin=Flushed/Facial Moisture Restless Observation: 3= Extraneous Movement Pupil Size: 2= Moderately Dilated Bone or Joint Aches: 2= Severe Diffuse Aches Runny Nose/ Eye Tearin= Runny Nose/Eyes GI Upset > 30mins: 3= Vomiting/Diarrhea Tremor Observation: 2= Slight Tremor Visible Yawning Observation: 2= >3x During Session Anxiety or Irritability: 2=Irritable/Anxious Goose Flesh Skin: 0=Smooth Skin COWS Score: 20 CIWA Score - CIWA Score Nausea/Vomitin Muscle Tremors: 3 Anxiety: 3 Agitation: 3 Paroxysmal Sweats: 1-Minimal Palms Moist Orientation: 0-Oriented Tacttile Disturbances: 2-Mild Itch/Numbness/Burn Auditory Disturbances: 2-Mild Harshness/Frighten Visual Disturbances: 2-Mild Sensitivity Headache: 2-Mild CIWA-Ar Total Score: 21 Admission ROS S - HPI Chief Complaint: i need help to stop using heroin,xanax and cocaine Allergies/Adverse Reactions: Allergies Allergy/AdvReac Type Severity Reaction Status Date / Time No Known Allergies Allergy Verified 02/24/18 11:56 History of Present Illness: this 27 years old male with heroin,xanax and cocaine dependence,withdrawal symptom,seeking detox,last treatment [facility] 10/11/17 to 10/16/17 nicotine dependence weight loss anxiety,depression,insomnia longest period of sobriety 3 years - Ebola screening Have you traveled outside of the country in the last 21 days: No Have you had contact with anyone from an Ebola affected area: No Have you been sick,other than usual withdrawal symptoms: No Do you have a fever: No - Review of Systems Constitutional: Chills, Diaphoresis, Loss of Appetite, Malaise, Night Sweats, Changes in sleep, Weakness, Unintentional Wgt. Loss EENT: reports: Tearing, Nose Congestion Respiratory: reports: No Symptoms reported Cardiac: reports: No Symptoms Reported GI: reports: Diarrhea, Nausea, Vomiting, Abdominal cramping : reports: No Symptoms Reported Integumentary: reports: Dryness Neuro: reports: Headache, Tremors Endocrine: reports: No Symptoms Reported Hematology: reports: No Symptoms Reported Psychiatric: reports: No Sypmtoms Reported, Judgement Intact, Mood/Affect Appropiate, Orientated x3 (insomnia), Anxious, Depressed Patient History - Patient Medical History Hx Anemia: No Hx Asthma: No Hx Chronic Obstructive Pulmonary Disease (COPD): No Hx Cancer: No Hx Cardiac Disorders: No Hx Congestive Heart Failure: No Hx Hypertension: No Hx Hypercholesterolemia: No Hx Pacemaker: No HX Cerebrovascular Accident: No Hx Seizures: Yes (one time age 16) Hx Dementia: No Hx Diabetes: No Hx Gastrointestinal Disorders: No Hx Liver Disease: No Hx Genitourinary Disorders: No Hx Sexually Transmitted Disorders: Yes (gONORRHEA) Hx Renal Disease (ESRD): No Hx Thyroid Disease: No Hx Human Immunodeficiency Virus (HIV): No (10/11/17 negative) Hx Hepatitis C: No Hx Depression: Yes (with anxiety, never hospitalized) Hx Suicide Attempt: No Hx Bipolar Disorder: No Hx Schizophrenia: No Other Medical History: no suicidal,no homicidal - Patient Surgical History Past Surgical History: Yes Hx Neurologic Surgery: No Hx Cataract Extraction: No Hx Cardiac Surgery: No Hx Lung Surgery: No Hx Breast Surgery: No Hx Breast Biopsy: No Hx Abdominal Surgery: No Hx Appendectomy: No Hx Cholecystectomy: No Hx Genitourinary Surgery: No Hx Section: No Hx Orthopedic Surgery: Yes (R knee; arthroscopic surgery 2010) Anesthesia Reaction: No - PPD History Previous Implant?: Yes Documented Results: Negative w/proof Implanted On Prior [facility] Admission?: Yes Date: 10/13/17 Results: 0MM PPD to be Administered?: No - Reproductive History Patient : No - Smoking Cessation Smoking history: Current every day smoker Have you smoked in the past 12 months: Yes Aproximately how many cigarettes per day: 10 Hx Chewing Tobacco Use: No Initiated information on smoking cessation: Yes 'Breaking Loose' booklet given: 02/24/18 - Substance & Tx. History Hx Alcohol Use: No Hx Substance Use: Yes Substance Use Type: Cocaine, Heroin, Tranquilizers Hx Substance Use Treatment: Yes ([facility] 10/11/17 to ) - Substances Abused Heroin Route: Injection Frequency: Daily Amount used: 10 bags Age of first use: 20 Date of Last Use: 02/23/18 Cocaine Route: Smoking Frequency: 3-6 times per week Amount used: $ 50 Age of first use: 16 Date of Last Use: 02/23/18 xanax Route: Oral Frequency: Daily Amount used: 4mg Age of first use: 17 Date of Last Use: 02/21/18 Family Disease History - Family Disease History Family Disease History: Diabetes: Mother, Heart Disease: Father (HTN, skin cancer, alcohol/cocaine), CA: Father, Other: Father, Sister (heroin) Admission Physical Exam [facility] - Vital Signs Vital Signs: Vital Signs - 24 hr 02/24/18 11:31 Temperature 96.4 F L Pulse Rate 60 Respiratory 16 Rate Blood Pressure 134/76 - Physical General Appearance: Yes: Moderate Distress, Intoxicated, Tremorous, Irritable, Sweating, Anxious HEENTM: Yes: Normal ENT Inspection, MORRIS, Pharynx Normal Respiratory: Yes: Lungs Clear, Normal Breath Sounds, No Respiratory Distress Neck: Yes: Within Normal Limits, Supple, Trachea in good position Breast: Yes: Within Normal Limits Cardiology: Yes: Within Normal Limits, Regular Rhythm, Regular Rate, S1, S2 Abdominal: Yes: Within Normal Limits, Normal Bowel Sounds, Non Tender, Flat, Soft Genitourinary: Yes: Within Normal Limits Back: Yes: Within Normal Limits, Normal Inspection, Muscle Spasm Musculoskeletal: Yes: full range of Motion, Back pain, Muscle Pain Extremities: Yes: Tremors Neurological: Yes: Within Normal Limits, torpedo specialist II-XII NML intact, Fully Oriented, Alert, Motor Strength 5/5 Integumentary: Yes: Dry Lymphatic: Yes: Within Normal Limits - Diagnostic (1) Opioid dependence with withdrawal Current Visit: Yes Status: Acute (2) Uncomplicated sedative, hypnotic or anxiolytic withdrawal Current Visit: Yes Status: Acute (3) Nicotine dependence Current Visit: No Status: Acute Qualifiers: Nicotine product type: cigarettes Substance use status: in withdrawal Qualified Code(s): F17.213 - Nicotine dependence, cigarettes, with withdrawal (4) History of arthroscopic knee surgery Current Visit: No Status: Chronic (5) Weight loss Current Visit: Yes Status: Acute Cleared for Admission [facility] - Detox or Rehab [facility] Level of Care: Medically Managed Detox Regimen/Protocol: Methadone/Valium S Breath Alcohol Content Breath Alcohol Content: 0 Urine Drug Screen - Results Drug Screen Negative: No Urine Drug Screen Results: [place]-Cocaine, OPI-Opiates, BZO-Benzodiazepines, TCA- Tricyclic Antidepress
[2018-02-24] MEDS ORDERED: P-EPHED 60MG/TRIPROLIDI 2.5MG TABLET PO PRN (13:25)
[2018-02-24] MEDS ORDERED: guaiFENesin/D-METHORPHAN HB 10 ML UNIT-DOSE CUPS PO PRN (13:25)
[2018-02-24] MEDS ORDERED: ACETAMINOPHEN 325 MG TABLET (FP) PO PRN (13:25)
[2018-02-24] MEDS ORDERED: NICOTINE POLACRILEX 2 MG GUM BC PRN (13:25)
[2018-02-24] MEDS ORDERED: LOPERAMIDE HCL 2 MG CAPSULE PO PRN (13:25)
[2018-02-24] MEDS ORDERED: MAG HYDROX/AL HYDROX/SIMETH 30 ML UNIT-DOSE CUP PO PRN (13:25)
[2018-02-24] MEDS ORDERED: MAGNESIUM CITRATE 300 ML BOTTLE PO PRN (13:25)
[2018-02-24] MEDS ORDERED: MENTHOL/PHENOL 1 EACH UD MM PRN (13:25)
[2018-02-24] MEDS ORDERED: MAGNESIUM HYDROX 2400MG/30ML ORAL SUSPENSION 30 ML CUP PO PRN (13:25)
[2018-02-24] MEDS ORDERED: CYCLOBENZAPRINE HCL 10 MG TABLET (FP) PO PRN (13:28)
[2018-02-24] MEDS ORDERED: METHADONE HCL 10 MG TABLET (FOR DETOX USE ONLY) PO ONE ×2 (14:00→23:00)
[2018-02-24] MEDS ORDERED: diazePAM 5 MG TABLET PO ONE (14:00)
[2018-02-24] MEDS: IBUPROFEN 400 MG TABLET (FP) PO PRN (15:33)
--- NOTE | 2018-02-24 16:53 | CONSULT ---
[facility] Psychiatric Consult - Data Date of interview: 02/24/18 Admission source: [facility] Identifying data: Patient is a 27 year old single male, without kids, employed at [employer], and currently living with parents. This is one of multiple admissions for patient. Pt. admitted to for cocaine, opiates , and benzodiazepines dependence. Substance Abuse History: Following information confirmed with Mr. Del Rosario: - Smoking Cessation. Smoking history: Current every day smoker. Have you smoked in the past 12 months: Yes. Aproximately how many cigarettes per day: 10. Hx Chewing Tobacco Use: No. Initiated information on smoking cessation: Yes. ' Breaking Loose' booklet given: 02/24/18. - Substance & Tx. History. Hx Alcohol Use: No. Hx Substance Use: Yes. Substance Use Type: Cocaine, Heroin, Tranquilizers. Hx Substance Use Treatment: Yes ([facility] 10/11/17 to ). - Substances Abused. Heroin. Route: Injection. Frequency: Daily. Amount used: 10 bags. Age of first use: 20. Date of Last Use: 02/23/18. Cocaine. Route: Smoking. Frequency: 3-6 times per week. Amount used: $ 50. Age of first use: 16. Date of Last Use: 02/23/18. xanax. Route: Oral. Frequency : Daily. Amount used: 4mg. Age of first use: 17. Date of Last Use: 02/21/18 Medical History: R knee; arthroscopic surgery 2010, Seizures ( one time at age 16) Psychiatric History: Patient's first encounter with a psychiatrist was at the age of 7 for anxiety. Pt. reports h/o seeing 8-10 different outpatient psychiatrist without an admission to a psychiatric inpatient unit. Patient reports trials of various psychotrophic medications including zoloft, lamictal and "other medications". Pt. is currently seeing an crime specialist who prescribes him suboxone. Pt. denies accepting psychotrophic medications at this time. Pt. requesting a sleep aid. Pt. denies h/o suicide attempt. Pt. currently denies suicidal and homicidal ideation. Physical/Sexual Abuse/Trauma History: Denies. Mental Status Exam - Mental Status Exam Alert and Oriented to: Time, Place, Person Cognitive Function: Good Patient Appearance: Well Groomed Mood: Euthymic Affect: Mood Congruent Patient Behavior: Appropriate, Cooperative Speech Pattern: Appropriate Voice Loudness: Normal Thought Process: Goal Oriented Thought Disorder: Not Present Hallucinations: Denies Suicidal Ideation: Denies Homicidal Ideation: Denies Insight/Judgement: Poor Sleep: Poorly Appetite: Fair Muscle strength/Tone: Normal Gait/Station: Normal Psychiatric Findings - Problem List ([place] 1, 2,3) (1) Uncomplicated sedative, hypnotic or anxiolytic withdrawal Current Visit: Yes Status: Acute (2) Cocaine dependence Current Visit: Yes Status: Chronic Qualifiers: Substance use status: uncomplicated Qualified Code(s): F14.20 - Cocaine dependence, uncomplicated (3) Substance-induced sleep disorder Current Visit: Yes Status: Acute (4) Opioid dependence with withdrawal Current Visit: Yes Status: Acute (5) Substance induced mood disorder Current Visit: Yes Status: Acute - Initial Treatment Plan Initial Treatment Plan: Psychoeducation provided. Detoxification in progress. Ambien 10mg qhs prn ordered. Benefits and side effects discussed. Pt. made aware of the risk of parasomnia. Verbal consent given. Will continue to monitor.
[2018-02-24 18:53] LABS: URINE APPEARANCE SLCLOUDY; URINE BILIRUBIN NEGATIVE (<2.0 mg/dL); URINE BLOOD NEGATIVE (NEGATIVE); URINE COLOR DKYELLOW; URINE GLUCOSE (UA) NEGATIVE (NEGATIVE); URINE KETONE NEGATIVE (NEGATIVE); URINE LEUK ESTERASE NEGATIVE (NEGATIVE); URINE NITRITE NEGATIVE (NEGATIVE); URINE PROTEIN NEGATIVE (NEGATIVE); URINE UROBILINOGEN NEGATIVE mg/dL (0.2-1.0)
[2018-02-24] MEDS ORDERED: MELATONIN 5 MG TABLETS PO PRN (22:00)
[2018-02-24] MEDS: diazePAM 5 MG TABLET PO SCH (22:42)
[2018-02-24] MEDS: cloNIDine HCL 0.1 MG TABLET PO SCH (22:42)
[2018-02-24] MEDS: THIAMINE HCL 100 MG TABLET (FP) PO SCH (22:42)
[2018-02-25] MEDS: diazePAM 5 MG TABLET PO SCH ×3 (06:06→22:45)
[2018-02-25] MEDS ORDERED: METHADONE HCL 10 MG TABLET (FOR DETOX USE ONLY) PO SCH (10:00)
[2018-02-25 10:02] LABS: HEMATOCRIT 39.1 % (35.4-49); HEMOGLOBIN 13.4 GM/dL (11.7-16.9); MCH 29.1 pg (25.7-33.7); MCHC 34.3 g/dl (32.0-35.9); MEAN CELL VOLUME 84.8 fl (80-96); MEAN PLT VOLUME 7.8 fl (7.5-11.1); PLATELET COUNT 326 K/MM3 (134-434); RBC 4.61 M/mm3 (4.00-5.60); RDW 13.9 % (11.9-15.9); WHITE BLOOD COUNT 8.3 K/mm3 (4.0-10.0)
[2018-02-25 10:29] LABS: ALBUMIN 3.8 g/dl (3.4-5.0); ALK PHOS 100 U/L (45-117); ANION GAP 4 (8-16); BILIRUBIN,TOTAL 0.9 mg/dL (0.2-1.0); BLOOD UREA NITROGEN 10 mg/dL (7-18); CALCIUM 8.6 mg/dL (8.5-10.1); CHLORIDE 101 mmol/L (98-107); CO2 31 mmol/L (21-32); CREATININE 0.8 mg/dL (0.7-1.3); GLUCOSE,RANDOM 80 mg/dL (74-106); POTASSIUM 4.2 mmol/L (3.5-5.1); SGOT/AST 20 U/L (15-37); SGPT/ALT 21 U/L (12-78); SODIUM 136 mmol/L (136-145); TOT PROT 7.2 g/dl (6.4-8.2)
[2018-02-25] MEDS: diazePAM 5 MG TABLET PO PRN ×2 (10:43→19:03)
[2018-02-25] MEDS: PRENATAL VITAMINS W/ FOLIC ACID TABLET (FP) PO SCH (10:43)
[2018-02-25] MEDS: cloNIDine HCL 0.1 MG TABLET PO SCH ×2 (10:43→22:45)
--- NOTE | 2018-02-25 13:13 | PN ---
[facility] CIWA - CIWA Score Nausea/Vomitin-Mild Nausea/No Vomiting Muscle Tremors: 4-Moderate,w/Arms Extend Anxiety: 4-Mod. Anxious/Guarded Agitation: 4-Moderately Restless Paroxysmal Sweats: 1-Minimal Palms Moist Orientation: 0-Oriented Tacttile Disturbances: 2-Mild Itch/Numbness/Burn Auditory Disturbances: 0-None Visual Disturbances: 0-None Headache: 1-Very Mild CIWA-Ar Total Score: 17 [facility] COWS - Scale Resting Pulse: 0= [place] 80 or Below Sweatin= Chills/Flushing Restless Observation: 3= Extraneous Movement Pupil Size: 0= Normal to Room Light Bone or Joint Aches: 2= Severe Diffuse Aches Runny Nose/ Eye Tearin= Runny Nose/Eyes GI Upset > 30mins: 2= Nausea/Diarrhea Tremor Observation of Outstretched Hands: 2= Slight Tremor Visible Yawning Observation: 2= >3x During Session Anxiety or Irritability: 2=Irritable/Anxious Goose Flesh Skin: 0=Smooth Skin COWS Score: 16 S Progress Note (SOAP) Subjective: joint pain body ache tremor sweat anxiety restlessness trouble sleep at night Objective: 02/25/18 13:12 Vital Signs Temperature 97.2 F L 02/25/18 10:25 Pulse Rate 55 L 02/25/18 10:25 Respiratory Rate 18 02/25/18 10:25 Blood Pressure 113/63 02/25/18 10:25 O2 Sat by Pulse Oximetry (%) Laboratory Last Values WBC 8.3 K/mm3 (4.0-10.0) 02/25/18 06:00 RBC 4.61 M/mm3 (4.00-5.60) 02/25/18 06:00 Hgb 13.4 GM/dL (11.7-16.9) D 02/25/18 06:00 Hct 39.1 % (35.4-49) 02/25/18 06:00 MCV 84.8 fl (80-96) 02/25/18 06:00 MCH 29.1 pg (25.7-33.7) 02/25/18 06:00 MCHC 34.3 g/dl (32.0-35.9) 02/25/18 06:00 RDW 13.9 % (11.9-15.9) 02/25/18 06:00 Plt Count 326 K/MM3 (134-434) 02/25/18 06:00 MPV 7.8 fl (7.5-11.1) 02/25/18 06:00 Sodium 136 mmol/L (136-145) 02/25/18 06:00 Potassium 4.2 mmol/L (3.5-5.1) 02/25/18 06:00 Chloride 101 mmol/L (98-107) 02/25/18 06:00 Carbon Dioxide 31 mmol/L (21-32) 02/25/18 06:00 Anion Gap 4 (8-16) L 02/25/18 06:00 BUN 10 mg/dL (7-18) 02/25/18 06:00 Creatinine 0.8 mg/dL (0.7-1.3) 02/25/18 06:00 Creat Clearance w eGFR > 60 (>60) 02/25/18 06:00 Random Glucose 80 mg/dL (74-106) 02/25/18 06:00 Calcium 8.6 mg/dL (8.5-10.1) 02/25/18 06:00 Total Bilirubin 0.9 mg/dL (0.2-1.0) 02/25/18 06:00 AST 20 U/L (15-37) D 02/25/18 06:00 ALT 21 U/L (12-78) D 02/25/18 06:00 Alkaline Phosphatase 100 U/L (45-117) 02/25/18 06:00 Total Protein 7.2 g/dl (6.4-8.2) 02/25/18 06:00 Albumin 3.8 g/dl (3.4-5.0) 02/25/18 06:00 Urine Color Dkyellow 02/24/18 18:00 Urine Appearance Slcloudy 02/24/18 18:00 Urine pH 5.0 (5.0-8.0) 02/24/18 18:00 Ur Specific [place] 1.026 (1.001-1.035) 02/24/18 18:00 Urine Protein Negative (NEGATIVE) 02/24/18 18:00 Urine Glucose (UA) Negative (NEGATIVE) 02/24/18 18:00 Urine Ketones Negative (NEGATIVE) 02/24/18 18:00 Urine Blood Negative (NEGATIVE) 02/24/18 18:00 Urine Nitrite Negative (NEGATIVE) 02/24/18 18:00 Urine Bilirubin Negative (<2.0 mg/dL) 02/24/18 18:00 Urine Urobilinogen Negative mg/dL (0.2-1.0) 02/24/18 18:00 Ur Leukocyte Esterase Negative (NEGATIVE) 02/24/18 18:00 RPR Titer Nonreactive (NONREACTIVE) 02/25/18 06:00 HIV 1&2 Antibody Screen Negative 02/24/18 12:25 HIV P24 Antigen Negative 02/24/18 12:25 lab noted Assessment: 02/25/18 13:13 withdrawal sx Plan: continue detox
[2018-02-25] MEDS: ZOLPIDEM TARTRATE 10 MG TABLET (PARK CARE ONLY) PO PRN (22:44)
[2018-02-25] MEDS: IBUPROFEN 400 MG TABLET (FP) PO PRN (22:44)
[2018-02-25] MEDS: THIAMINE HCL 100 MG TABLET (FP) PO SCH (22:45)
[2018-02-26] MEDS: diazePAM 5 MG TABLET PO SCH ×2 (10:16→22:25)
[2018-02-26] MEDS: cloNIDine HCL 0.1 MG TABLET PO SCH ×2 (10:16→22:24)
[2018-02-26] MEDS: PRENATAL VITAMINS W/ FOLIC ACID TABLET (FP) PO SCH (10:16)
[2018-02-26] MEDS: METHADONE HCL 5 MG TABLET (FOR DETOX USE ONLY) PO SCH (10:17)
--- NOTE | 2018-02-26 11:02 | PN ---
[facility] CIWA - CIWA Score Nausea/Vomitin-Mild Nausea/No Vomiting Muscle Tremors: 3 Anxiety: 4-Mod. Anxious/Guarded Agitation: 4-Moderately Restless Paroxysmal Sweats: 1-Minimal Palms Moist Orientation: 0-Oriented Tacttile Disturbances: 0-None Auditory Disturbances: 0-None Visual Disturbances: 0-None Headache: 0-None Present CIWA-Ar Total Score: 13 S COWS - Scale Resting Pulse: 0= [place] 80 or Below Sweatin= Chills/Flushing Restless Observation: 1= Difficult to Sit Still Pupil Size: 0= Normal to Room Light Bone or Joint Aches: 2= Severe Diffuse Aches Runny Nose/ Eye Tearin= Runny Nose/Eyes GI Upset > 30mins: 2= Nausea/Diarrhea Tremor Observation of Outstretched Hands: 1= Tremor [place], Not Seen Yawning Observation: 2= >3x During Session Anxiety or Irritability: 2=Irritable/Anxious Goose Flesh Skin: 0=Smooth Skin COWS Score: 13 [facility] Progress Note (SOAP) Subjective: joint pain body ache sweat tremor anxiety restlessness mild gi distress Objective: 02/26/18 11:03 Vital Signs Temperature 97.9 F 02/26/18 10:09 Pulse Rate 74 02/26/18 10:09 Respiratory Rate 16 02/26/18 10:09 Blood Pressure 114/66 02/26/18 10:09 O2 Sat by Pulse Oximetry (%) Laboratory Last Values WBC 8.3 K/mm3 (4.0-10.0) 02/25/18 06:00 RBC 4.61 M/mm3 (4.00-5.60) 02/25/18 06:00 Hgb 13.4 GM/dL (11.7-16.9) D 02/25/18 06:00 Hct 39.1 % (35.4-49) 02/25/18 06:00 MCV 84.8 fl (80-96) 02/25/18 06:00 MCH 29.1 pg (25.7-33.7) 02/25/18 06:00 MCHC 34.3 g/dl (32.0-35.9) 02/25/18 06:00 RDW 13.9 % (11.9-15.9) 02/25/18 06:00 Plt Count 326 K/MM3 (134-434) 02/25/18 06:00 MPV 7.8 fl (7.5-11.1) 02/25/18 06:00 Sodium 136 mmol/L (136-145) 02/25/18 06:00 Potassium 4.2 mmol/L (3.5-5.1) 02/25/18 06:00 Chloride 101 mmol/L (98-107) 02/25/18 06:00 Carbon Dioxide 31 mmol/L (21-32) 02/25/18 06:00 Anion Gap 4 (8-16) L 02/25/18 06:00 BUN 10 mg/dL (7-18) 02/25/18 06:00 Creatinine 0.8 mg/dL (0.7-1.3) 02/25/18 06:00 Creat Clearance w eGFR > 60 (>60) 02/25/18 06:00 Random Glucose 80 mg/dL (74-106) 02/25/18 06:00 Calcium 8.6 mg/dL (8.5-10.1) 02/25/18 06:00 Total Bilirubin 0.9 mg/dL (0.2-1.0) 02/25/18 06:00 AST 20 U/L (15-37) D 02/25/18 06:00 ALT 21 U/L (12-78) D 02/25/18 06:00 Alkaline Phosphatase 100 U/L (45-117) 02/25/18 06:00 Total Protein 7.2 g/dl (6.4-8.2) 02/25/18 06:00 Albumin 3.8 g/dl (3.4-5.0) 02/25/18 06:00 Urine Color Dkyellow 02/24/18 18:00 Urine Appearance Slcloudy 02/24/18 18:00 Urine pH 5.0 (5.0-8.0) 02/24/18 18:00 Ur Specific [place] 1.026 (1.001-1.035) 02/24/18 18:00 Urine Protein Negative (NEGATIVE) 02/24/18 18:00 Urine Glucose (UA) Negative (NEGATIVE) 02/24/18 18:00 Urine Ketones Negative (NEGATIVE) 02/24/18 18:00 Urine Blood Negative (NEGATIVE) 02/24/18 18:00 Urine Nitrite Negative (NEGATIVE) 02/24/18 18:00 Urine Bilirubin Negative (<2.0 mg/dL) 02/24/18 18:00 Urine Urobilinogen Negative mg/dL (0.2-1.0) 02/24/18 18:00 Ur Leukocyte Esterase Negative (NEGATIVE) 02/24/18 18:00 RPR Titer Nonreactive (NONREACTIVE) 02/25/18 06:00 HIV 1&2 Antibody Screen Negative 02/24/18 12:25 HIV P24 Antigen Negative 02/24/18 12:25 lab noted Assessment: 02/26/18 11:04 withdrawal sx Plan: continue detox
[2018-02-26] MEDS: diazePAM 5 MG TABLET PO PRN (15:45)
--- NOTE | 2018-02-26 16:16 | EKG ---
Test Reason : Blood Pressure : / mmHG Vent. Rate : 054 BPM Atrial Rate : 054 BPM P-R Int : 152 ms QRS Dur : 080 ms QT Int : 428 ms P-R-T Axes : 053 032 033 degrees QTc Int : 405 ms SINUS BRADYCARDIA OTHERWISE NORMAL ECG WHEN COMPARED WITH ECG OF 11-OCT-2017 12:37, NO SIGNIFICANT CHANGE WAS FOUND Confirmed by INGRID DEUTSCH MD ([id number]) on 02/26/2018 4:15:56 PM Referred By: Confirmed By:INGRID DEUTSCH MD
[2018-02-26] MEDS: THIAMINE HCL 100 MG TABLET (FP) PO SCH (22:25)
[2018-02-26] MEDS: ZOLPIDEM TARTRATE 10 MG TABLET (PARK CARE ONLY) PO PRN (22:26)
--- NOTE | 2018-02-27 09:56 | PN ---
[facility] Progress Note (SOAP) Subjective: nausea, sweats, interrupted sleep, anxiety, tremors Objective: 02/27/18 09:56 Vital Signs - 24 hr 02/26/18 02/26/18 02/26/18 10:09 13:42 18:07 Temperature 97.9 F 98.1 F 98.1 F Pulse Rate 74 57 L 58 L Respiratory 16 16 18 Rate Blood Pressure 114/66 94/52 109/54 02/26/18 02/27/18 02/27/18 22:27 03:30 06:00 Temperature 99.7 F H 97.2 F L Pulse Rate 56 L 72 Respiratory 18 18 18 Rate Blood Pressure 109/54 98/63 Laboratory Tests 02/24/18 02/24/18 02/25/18 12:25 18:00 06:00 WBC 8.3 RBC 4.61 Hgb 13.4 D Hct 39.1 MCV 84.8 MCH 29.1 MCHC 34.3 RDW 13.9 Plt Count 326 MPV 7.8 Sodium Potassium Chloride Carbon Dioxide Anion Gap BUN Creatinine Creat Clearance w eGFR Random Glucose Calcium Total Bilirubin AST ALT Alkaline Phosphatase Total Protein Albumin Urine Color Dkyellow Urine Appearance Slcloudy Urine pH 5.0 Ur Specific [place] 1.026 Urine Protein Negative Urine Glucose (UA) Negative Urine Ketones Negative Urine Blood Negative Urine Nitrite Negative Urine Bilirubin Negative Urine Urobilinogen Negative Ur Leukocyte Esterase Negative RPR Titer HIV 1&2 Antibody Screen Negative HIV P24 Antigen Negative 02/25/18 02/25/18 06:00 06:00 WBC RBC Hgb Hct MCV MCH MCHC RDW Plt Count MPV Sodium 136 Potassium 4.2 Chloride 101 Carbon Dioxide 31 Anion Gap 4 L BUN 10 Creatinine 0.8 Creat Clearance w eGFR > 60 Random Glucose 80 Calcium 8.6 Total Bilirubin 0.9 AST 20 D ALT 21 D Alkaline Phosphatase 100 Total Protein 7.2 Albumin 3.8 Urine Color Urine Appearance Urine pH Ur Specific [place] Urine Protein Urine Glucose (UA) Urine Ketones Urine Blood Urine Nitrite Urine Bilirubin Urine Urobilinogen Ur Leukocyte Esterase RPR Titer Nonreactive HIV 1&2 Antibody Screen HIV P24 Antigen Assessment: 02/27/18 09:56 withdrawal sx - cont detox, fluids, interrupted sleep,neurotin tid for symptom relief
[2018-02-27] MEDS: METHADONE HCL 5 MG TABLET (FOR DETOX USE ONLY) PO SCH (10:41)
[2018-02-27] MEDS: cloNIDine HCL 0.1 MG TABLET PO SCH ×2 (10:42→22:18)
[2018-02-27] MEDS: diazePAM 5 MG TABLET PO SCH ×2 (10:42→22:18)
[2018-02-27] MEDS: PRENATAL VITAMINS W/ FOLIC ACID TABLET (FP) PO SCH (10:42)
[2018-02-27] MEDS: GABAPENTIN 100 MG CAPSULE (FP) PO SCH ×2 (12:59→22:18)
[2018-02-27] MEDS: CYCLOBENZAPRINE HCL 10 MG TABLET (FP) PO SCH ×2 (12:59→22:18)
[2018-02-27] MEDS: ZOLPIDEM TARTRATE 10 MG TABLET (PARK CARE ONLY) PO PRN (22:18)
[2018-02-27] MEDS: THIAMINE HCL 100 MG TABLET (FP) PO SCH (22:19)
[2018-02-28] MEDS: GABAPENTIN 100 MG CAPSULE (FP) PO SCH ×3 (05:29→22:10)
[2018-02-28] MEDS: CYCLOBENZAPRINE HCL 10 MG TABLET (FP) PO SCH ×3 (05:29→22:10)
[2018-02-28] MEDS: hydrOXYzine PAMOATE 25 MG CAPSULE (FP) PO PRN ×2 (05:30→14:18)
[2018-02-28] MEDS ORDERED: METHADONE HCL 10 MG TABLET (FOR DETOX USE ONLY) PO SCH (10:00)
[2018-02-28] MEDS ORDERED: diazePAM 5 MG TABLET PO SCH (10:00)
[2018-02-28] MEDS: cloNIDine HCL 0.1 MG TABLET PO SCH ×2 (10:11→22:10)
[2018-02-28] MEDS: PRENATAL VITAMINS W/ FOLIC ACID TABLET (FP) PO SCH (10:11)
--- NOTE | 2018-02-28 13:33 | PN ---
S Progress Note (SOAP) Subjective: ALERT,IRRITABLE,ANXIOUS,INTERRUPTED SLEEP Objective: 02/28/18 13:31 Vital Signs Temperature 97.9 F 02/28/18 10:00 Pulse Rate 57 L 02/28/18 10:00 Respiratory Rate 16 02/28/18 10:00 Blood Pressure 103/53 02/28/18 10:00 O2 Sat by Pulse Oximetry (%) Assessment: 02/28/18 13:32 WITHDRAWAL SYMPTOM Plan: CONTINUE DETOX,DISCHARGE IN AM
[2018-02-28] MEDS: THIAMINE HCL 100 MG TABLET (FP) PO SCH (22:10)
[2018-03-01] MEDS: CYCLOBENZAPRINE HCL 10 MG TABLET (FP) PO SCH (05:23)
[2018-03-01] MEDS: GABAPENTIN 100 MG CAPSULE (FP) PO SCH (05:23)
[2018-03-01] MEDS ORDERED: METHADONE HCL 5 MG TABLET (FOR DETOX USE ONLY) PO SCH (06:00)
[2018-03-01 07:17] VITALS: BP 97/52; PULSE 77; TEMP 97.5
--- NOTE | 2018-03-01 08:48 | DS ---
[facility] Detox Discharge Summary Admission Date: 02/24/18 Discharge Date: 03/01/18 - History Present History: Cannabis Dependence, Opioid Dependence, Sedative Dependence - Physical Exam Results Vital Signs: Vital Signs Temperature 97.5 F L 03/01/18 07:16 Pulse Rate 77 03/01/18 07:16 Respiratory Rate 18 03/01/18 07:16 Blood Pressure 97/52 03/01/18 07:16 O2 Sat by Pulse Oximetry (%) - Treatment Hospital Course: Detox Protocol Followed, Detoxed Safely, Responded well, Discharged Condition Good, Rehab Referral Accepted - Medication Discharge Medications: Ambulatory Orders NK [No Known Home Medication] 02/24/18 - Diagnosis (1) Opioid dependence with withdrawal Current Visit: Yes Status: Chronic (2) Substance induced mood disorder Current Visit: Yes Status: Chronic (3) Substance-induced sleep disorder Current Visit: Yes Status: Chronic (4) Uncomplicated sedative, hypnotic or anxiolytic withdrawal Current Visit: Yes Status: Chronic (5) Weight loss Current Visit: Yes Status: Acute (6) Cannabis dependence Current Visit: Yes Status: Chronic (7) Cocaine dependence Current Visit: Yes Status: Chronic Qualifiers: Substance use status: uncomplicated Qualified Code(s): F14.20 - Cocaine dependence, uncomplicated (8) Crack cocaine use Current Visit: Yes Status: Chronic (9) Nicotine dependence Current Visit: Yes Status: Chronic Qualifiers: Nicotine product type: cigarettes Substance use status: in withdrawal Qualified Code(s): F17.213 - Nicotine dependence, cigarettes, with withdrawal (10) Sedative, hypnotic or anxiolytic dependence with withdrawal, uncomplicated Current Visit: Yes Status: Chronic (11) Dysthymic disorder Current Visit: No Status: Chronic (12) History of arthroscopic knee surgery Current Visit: No Status: Chronic - AMA Did Patient Leave Against Medical Advice: No
[2018-03-01] MEDS: cloNIDine HCL 0.1 MG TABLET PO SCH (09:44)
[2018-03-01] MEDS: PRENATAL VITAMINS W/ FOLIC ACID TABLET (FP) PO SCH (09:44)
== END 2018-03-01 09:50 | disposition home or self-care (01) | DRG 897 ==
LOC: YASAS 10:58 → Y6N 13:17
PROVIDERS: ADMIT Internal Medicine; ATTEND Internal Medicine
PROC: HZ2ZZZZ Detoxification Services for Substance Abuse Treatment (ICD-10-PCS; principal; 2018-02-24)
DX: F11.23 Opioid dependence with withdrawal (principal); F14.20 Cocaine dependence, uncomplicated; F19.282 Other psychoactive substance dependence with psychoactive substance-induced sleep disorder; F13.230 Sedative, hypnotic or anxiolytic dependence with withdrawal, uncomplicated; F17.213 Nicotine dependence, cigarettes, with withdrawal; F19.24 Other psychoactive substance dependence with psychoactive substance-induced mood disorder; F34.1 Dysthymic disorder; Z87.438 Personal history of other diseases of male genital organs; Z86.69 Personal history of other diseases of the nervous system and sense organs; Z87.898 Personal history of other specified conditions
CPT/HCPCS: 36415; 80053; 81003; 85027; 86593; 87389; 93005; 93010; J0735

== ENCOUNTER 2020-06-17 09:57 | Inpatient (IN) | payer OTHER ==
--- NOTE | 2020-06-17 12:07 | BHS.RME ---
Substance Use & Tx History - Substance Use History Heroin Substance amount: 10 to 20 bags of heroin Frequency of use: Daily Substance route: Injection (ex: intravenous or skin popping) Date of Last Use: 06/16/20 Xanax Substance amount: 5 to 7 mgs Frequency of use: Daily Substance route: Oral Date of Last Use: 06/17/20 Marijuana/Hashish Frequency of use: Less than 3 times per week Substance route: Smoking Date of Last Use: 06/16/20 - Last Treatment Date of last treatment: [facility] 02/24/18 to 03/01/18 Where was last treatment: Detox Physical/Psych/Mental Status - Behavior Eye Contact: Normal - Cooperativeness Cooperativeness: Cooperative - Thinking Thought Processes: Logical Thought content: Future oriented - Physical Health Problems Is patient presently having any pain?: No Does patient presently have any injuries (include location): No Does patient currently have a fever: No COWS - Scale Resting Pulse: 1= [place] 81-100 Sweatin= No chills or Flushing Restless Observation: 0= Sits Still Pupil Size: 1= Pupils >than Normal Bone or Joint Aches: 2= Severe Diffuse Aches Runny Nose/ Eye Tearin= Runny Nose/Eyes GI Upset > 30mins: 2= Nausea/Diarrhea Tremor Observation: 2= Slight Tremor Visible Yawning Observation: 2= >3x During Session Anxiety or Irritability: 2=Irritable/Anxious Goose Flesh Skin: 3=Piloerection COWS Score: 17 CIWA Nausea/Vomitin Muscle Tremors: 3 Anxiety: 2 Agitation: 2 Paroxysmal Sweats: 1-Minimal Palms Moist Orientation: 0-Oriented Tacttile Disturbances: 1-Very Mild Itch/Numbness Auditory Disturbances: 0-None Visual Disturbances: 0-None Headache: 2-Mild CIWA-Ar Total Score: 13
--- NOTE | 2020-06-17 12:15 | HP ---
COWS - Scale Resting Pulse: 1= [place] 81-100 Sweatin= No chills or Flushing Restless Observation: 0= Sits Still Pupil Size: 1= Pupils >than Normal Bone or Joint Aches: 2= Severe Diffuse Aches Runny Nose/ Eye Tearin= Runny Nose/Eyes GI Upset > 30mins: 2= Nausea/Diarrhea Tremor Observation: 2= Slight Tremor Visible Yawning Observation: 2= >3x During Session Anxiety or Irritability: 2=Irritable/Anxious Goose Flesh Skin: 3=Piloerection COWS Score: 17 CIWA Score Nausea/Vomitin Muscle Tremors: 3 Anxiety: 2 Agitation: 2 Paroxysmal Sweats: 1-Minimal Palms Moist Orientation: 0-Oriented Tacttile Disturbances: 1-Very Mild Itch/Numbness Auditory Disturbances: 0-None Visual Disturbances: 0-None Headache: 2-Mild CIWA-Ar Total Score: 13 - Admission Criteria OASAS Guidelines: Admission for Medically Managed Detox: Requires at least one of the followin. CIWA greater than 12 2. Seizures within the past 24 hours 3. Delirium tremens within the past 24 hours 4. Hallucinations within the past 24 hours 5. Acute intervention needed for co occurring medical disorder 6. Acute intervention needed for co occurring psychiatric disorder 7. Severe withdrawal that cannot be handled at a lower level of care (continued vomiting, continued diarrhea, abnormal vital signs) requiring intravenous medication and/or fluids 8. 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 Chief Complaint: i need help to stop using heroin,xanax and marijuana Allergies/Adverse Reactions: Allergies Allergy/AdvReac Type Severity Reaction Status Date / Time No Known Allergies Allergy Verified 02/24/18 11:56 History of Present Illness: this 29 years old male with heroin,xanax and marijuana dependence Exam Limitations: No Limitations - Ebola screening Have you traveled outside of the country in the last 21 days: No Have you had contact with anyone from an Ebola affected area: No Have you been sick,other than usual withdrawal symptoms: No Do you have a fever: No - Review of Systems Constitutional: Chills, Loss of Appetite, Malaise, Night Sweats, Changes in sleep, Weakness, Unintentional Wgt. Loss EENT: reports: Tearing, Nose Congestion Respiratory: reports: No Symptoms reported Cardiac: reports: No Symptoms Reported GI: reports: No Symptoms Reported, Nausea, Vomiting, Abdominal cramping : reports: No Symptoms Reported Musculoskeletal: reports: Back Pain, Muscle Pain Integumentary: reports: Dryness Neuro: reports: Headache, Tremors Endocrine: reports: No Symptoms Reported Hematology: reports: No Symptoms Reported, Other (factor 8 deficiency) Psychiatric: reports: No Sypmtoms Reported, Judgement Intact, Mood/Affect Appropiate, Orientated x3, Anxious, Depressed Patient History - Patient Medical History Hx Anemia: No Hx Asthma: No Hx Chronic Obstructive Pulmonary Disease (COPD): No Hx Cancer: No Hx Cardiac Disorders: No Hx Congestive Heart Failure: No Hx Hypertension: No Hx Hypercholesterolemia: No Hx Pacemaker: No HX Cerebrovascular Accident: No Hx Seizures: Yes (one time age 16) Hx Dementia: No Hx Diabetes: No Hx Gastrointestinal Disorders: No Hx Liver Disease: No Hx Genitourinary Disorders: No Hx Sexually Transmitted Disorders: Yes (gONORRHEA) Hx Renal Disease (ESRD): No Hx Thyroid Disease: No Hx Human Immunodeficiency Virus (HIV): No (05/2020 negative) Hx Hepatitis C: No Hx Depression: Yes (with anxiety, never hospitalized) Hx Suicide Attempt: No Hx Bipolar Disorder: No Hx Schizophrenia: No Other Medical History: no suicidal,no homicidal - Patient Surgical History Past Surgical History: Yes Hx Neurologic Surgery: No Hx Cataract Extraction: No Hx Cardiac Surgery: No Hx Lung Surgery: No Hx Breast Surgery: No Hx Breast Biopsy: No Hx Abdominal Surgery: No Hx Appendectomy: No Hx Cholecystectomy: No Hx Genitourinary Surgery: No Hx Section: No Hx Orthopedic Surgery: Yes (R knee; arthroscopic surgery 2010) Other Surgical History: removal of needle right elbow 05/09/20 Anesthesia Reaction: No - PPD History Previous Implant?: Yes Documented Results: Negative w/o proof Implanted On Prior [facility] Admission?: Yes Date: 10/13/17 Results: 0MM PPD to be Administered?: Yes - Smoking Cessation Smoking history: Current every day smoker Have you smoked in the past 12 months: Yes Aproximately how many cigarettes per day: 5 Hx Chewing Tobacco Use: No Initiated information on smoking cessation: Yes 'Breaking Loose' booklet given: 06/17/20 - Substance & Tx. History Hx Alcohol Use: No Hx Substance Use: Yes Substance Use Type: Heroin, Marijuana, Tranquilizers Hx Substance Use Treatment: Yes ([facility] 02/24/18 to 03/01/18) - Substances abused Heroin Substance route: Injection Frequency: Daily Amount used: 10 to 20 bags Age of first use: 20 Date of last use: 06/16/20 Alprazolam (Xanax) Substance route: Oral Frequency: Daily Amount used: 5 to 7 mgs Age of first use: 17 Date of last use: 06/16/20 Marijuana/Hashish Substance route: Smoking Frequency: 3-6 times per week Amount used: 10$ Age of first use: 13 Date of last use: 06/16/20 Admission Physical Exam BHS - Vital Signs Vital Signs: t97.7,p94,bp 114/80,r18 - Physical General Appearance: Yes: Mild Distress, Irritable, Sweating, Anxious HEENTM: Yes: Normal ENT Inspection, Normal Voice, MORRIS, Pharynx Normal Respiratory: Yes: Lungs Clear, Normal Breath Sounds, No Respiratory Distress Neck: Yes: Within Normal Limits, Supple, Trachea in good position Breast: Yes: Within Normal Limits Cardiology: Yes: Within Normal Limits, Regular Rhythm, Regular Rate, S1, S2 Abdominal: Yes: Within Normal Limits, Normal Bowel Sounds, Non Tender, Flat, Soft Genitourinary: Yes: Within Normal Limits Back: Yes: Muscle Spasm Musculoskeletal: Yes: Back pain, Muscle Pain Extremities: Yes: Within Normal Limits, Normal Range of Motion, Tremors Neurological: Yes: project eng II-XII NML intact, Fully Oriented, Alert, Motor Strength 5/5 Integumentary: Yes: Dry, Track Tao Lymphatic: Yes: Within Normal Limits - Diagnostic (1) Opioid dependence with withdrawal Current Visit: Yes Status: Acute (2) IVDU (intravenous drug user) Current Visit: Yes Status: Acute (3) Weight loss Current Visit: No Status: Acute (4) Cannabis dependence Current Visit: Yes Status: Chronic (5) Sedative, hypnotic or anxiolytic dependence with withdrawal, uncomplicated Current Visit: Yes Status: Acute (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 - Detox or Rehab [facility] Level of Care: Medically Managed Detox Regimen/Protocol: Methadone/Valium Urine Drug Screen - Test Device Lot number: [id number] Expiration date: 07/03/21 - Control Is test valid?: Yes - Results Drug screen NEGATIVE: No Urine drug screen results: THC-Marijuana, FEN-Fentanyl, BZO-Benzodiazepines Inpatient Rehab Admission - Rehab Decision to Admit Inpatient rehab admission?: No
[2020-06-17] MEDS ORDERED: MENTHOL/PHENOL 1 EACH UD MM PRN (12:28)
[2020-06-17] MEDS ORDERED: IBUPROFEN 400 MG TABLET (FP) PO PRN (12:28)
[2020-06-17] MEDS ORDERED: MAGNESIUM CITRATE 300 ML BOTTLE PO PRN (12:28)
[2020-06-17] MEDS ORDERED: ACETAMINOPHEN 325 MG TABLET (FP) PO PRN ×2 (12:28)
[2020-06-17] MEDS ORDERED: BISMUTH SUBSALICYLATE 524 MG/30 ML UD PO PRN (12:28)
[2020-06-17] MEDS ORDERED: cloNIDine HCL 0.1 MG TABLET PO PRN (12:28)
[2020-06-17] MEDS ORDERED: ONDANSETRON *ODT* 4 MG TABLET SL ONE (12:28)
[2020-06-17] MEDS ORDERED: MAGNESIUM HYDROX 2400MG/30ML ORAL SUSPENSION 30 ML CUP PO PRN (12:28)
[2020-06-17] MEDS ORDERED: METHADONE HCL 10 MG TABLET (FOR DETOX USE ONLY) PO ONE (12:28)
[2020-06-17] MEDS ORDERED: NICOTINE POLACRILEX 2 MG GUM BUC PRN (12:28)
[2020-06-17] MEDS ORDERED: MAG HYDROX/AL HYDROX/SIMETH 30 ML UNIT-DOSE CUP PO PRN (12:28)
[2020-06-17 13:42] VITALS: BMI 25.8
[2020-06-17] MEDS: diazePAM 5 MG TABLET PO SCH ×2 (14:53→22:25)
[2020-06-17] MEDS: hydrOXYzine PAMOATE 25 MG CAPSULE (FP) PO SCH ×3 (14:53→22:25)
[2020-06-17] MEDS: THIAMINE HCL 100 MG TABLET (FP) PO SCH (22:24)
[2020-06-17] MEDS: MELATONIN 5 MG TABLETS PO SCH (22:26)
[2020-06-18] MEDS: hydrOXYzine PAMOATE 25 MG CAPSULE (FP) PO SCH ×5 (05:35→22:10)
[2020-06-18] MEDS: diazePAM 5 MG TABLET PO SCH ×3 (05:35→22:10)
[2020-06-18] MEDS ORDERED: METHADONE HCL 5 MG TABLET (FOR DETOX USE ONLY) ONE (09:42)
[2020-06-18] MEDS ORDERED: METHADONE HCL 10 MG TABLET (FOR DETOX USE ONLY) ONE (09:42)
--- NOTE | 2020-06-18 09:56 | CONSULT ---
[facility] Psychiatric Consult - Data Date of interview: 06/18/20 Admission source: [facility] Identifying data: Patient is a 29 year old single male, without children, employed, and reside with parents. This is one of multiple admissions for patient. Patient admitted to for opiate and benzodiazepine dependence. Substance Abuse History: Smoking Cessation. Smoking history: Current every day smoker. Have you smoked in the past 12 months: Yes. Aproximately how many cigarettes per day: 5. Hx Chewing Tobacco Use: No. Initiated information on smoking cessation: Yes. 'Breaking Loose' booklet given: 06/17/20. - Substance & Tx. History. Hx Alcohol Use: No. Hx Substance Use: Yes. Substance Use Type: Heroin, Marijuana, Tranquilizers. Hx Substance Use Treatment: Yes ([facility] 02/24/18 to 03/01/18). - Substances abused. Heroin. Substance route: Injection. Frequency: Daily. Amount used: 10 to 20 bags. Age of first use: 20. Date of last use: 06/16/20. Alprazolam (Xanax). Substance route: Oral. Frequency: Daily. Amount used: 5 to 7 mgs. Age of first use: 17. Date of last use: 06/16/20. Marijuana/Hashish. Substance route: Smoking. Frequency: 3-6 times per week. Amount used: 10$. Age of first use: 13. Date of last use: Medical History: R knee; arthroscopic surgery 2010, Seizures ( one time at age 16) Psychiatric History: Patient's first encounter with a psychiatrist was at the age of 7 for anxiety. No reported history of psychiatric hospitalizations and suicide attempt. Pt. reports history of seeing 8-10 different outpatient psychiatrist without an admission to a psychiatric inpatient unit. Patient reports trials of various psychotrophic medications including zoloft +lamictal. Mr. Del Rosario is currently provided with outpatient psychiatric care at [facility] and is prescribed xanax + vistaril +suboxone. At present patient reports difficulty sleeping. Physical/Sexual Abuse/Trauma History: denies. Mental Status Exam - Mental Status Exam Alert and Oriented to: Time, Place, Person Cognitive Function: Good Patient Appearance: Well Groomed Mood: Hopeful Affect: Appropriate Patient Behavior: Appropriate, Cooperative Speech Pattern: Appropriate Voice Loudness: Normal Thought Process: Intact, Goal Oriented Thought Disorder: Not Present Hallucinations: Denies Suicidal Ideation: Denies Homicidal Ideation: Denies Insight/Judgement: Poor Sleep: Poorly Appetite: Fair Muscle strength/Tone: Normal Gait/Station: Normal Psychiatric Findings - Problem List ([place] 1, 2,3) (1) Cannabis dependence Current Visit: Yes Status: Chronic (2) Opioid dependence with withdrawal Current Visit: Yes Status: Acute (3) Sedative, hypnotic or anxiolytic dependence with withdrawal, uncomplicated Current Visit: Yes Status: Acute - Initial Treatment Plan Initial Treatment Plan: Psychoeducation provided. Detoxification in progress.Will order Belsomra 10mg HS PRN. Benefits and side effects discussed. Verbal consent given.
[2020-06-18] MEDS ORDERED: METHADONE (DETOX) 20 MG, METHADONE (DETOX) 5 MG PO ONE (10:00)
[2020-06-18] MEDS: diazePAM 5 MG TABLET PO PRN ×2 (10:33→18:14)
[2020-06-18] MEDS: PRENATAL VITAMINS W/ FOLIC ACID TABLET (FP) PO SCH (10:33)
[2020-06-18 10:45] LABS: HEMATOCRIT 44.2 % (35.4-49); HEMOGLOBIN 14.7 GM/dL (11.7-16.9); MCHC 33.1 g/dl (32.0-35.9); MEAN CELL VOLUME 81.4 fl (80-96); MEAN PLT VOLUME 7.4 fl (7.5-11.1); PLATELET COUNT 308 K/MM3 (134-434); RBC 5.44 M/mm3 (4.00-5.60); RDW 15.1 % (11.9-15.9); WHITE BLOOD COUNT 5.8 K/mm3 (4.0-10.0)
[2020-06-18 10:48] LABS: ALBUMIN 3.7 g/dl (3.4-5.0); BLOOD UREA NITROGEN 10.4 mg/dL (7-18); CALCIUM 8.9 mg/dL (8.5-10.1); POTASSIUM 4.1 mmol/L (3.5-5.1)
[2020-06-18 10:52] LABS: BILIRUBIN,TOTAL 1.5 mg/dL (0.2-1); CREATININE 0.8 mg/dL (0.55-1.3); TOT PROT 7.3 g/dl (6.4-8.2)
--- NOTE | 2020-06-18 12:53 | PN ---
S CIWA - CIWA Score Nausea/Vomitin-Mild Nausea/No Vomiting Muscle Tremors: 3 Anxiety: 4-Mod. Anxious/Guarded Agitation: 1-Slight > Activity Paroxysmal Sweats: No Perspiration Orientation: 0-Oriented Tacttile Disturbances: 0-None Auditory Disturbances: 0-None Visual Disturbances: 2-Mild Sensitivity Headache: 1-Very Mild CIWA-Ar Total Score: 12 S COWS - Scale Resting Pulse: 0= ID 80 or Below Sweatin= Chills/Flushing Restless Observation: 0= Sits Still Pupil Size: 1= Pupils >than Normal Bone or Joint Aches: 1= Mild Discomfort Runny Nose/ Eye Tearin= None GI Upset > 30mins: 2= Nausea/Diarrhea Tremor Observation of Outstretched Hands: 2= Slight Tremor Visible Yawning Observation: 0= None Anxiety or Irritability: 2=Irritable/Anxious Goose Flesh Skin: 3=Piloerection COWS Score: 12 S Progress Note (SOAP) Subjective: 29 years old male admitted on 06/17/20 for benzo and opiate withdrawal sx management treating with valium and methadone detox regiment feels ok today ate breakfast and lunch in room resting in bed feeling tired limited conversation with staff Objective: 06/18/20 12:50 Vital Signs - 24 hr 06/17/20 06/17/20 06/17/20 13:36 14:34 16:40 Temperature 97.7 F 98.6 F 97.3 F L Pulse Rate 94 H 72 72 Respiratory 18 18 18 Rate Blood Pressure 114/80 127/84 118/85 O2 Sat by Pulse Oximetry (%) 06/17/20 06/18/20 06/18/20 20:25 06:52 08:14 Temperature 96.9 F L 97.7 F 97.1 F L Pulse Rate 72 50 L 52 L Respiratory 18 16 18 Rate Blood Pressure 107/72 108/67 117/75 O2 Sat by Pulse 98 100 Oximetry (%) Laboratory Tests 06/18/20 06/18/20 06/18/20 08:00 08:00 08:00 WBC 5.8 RBC 5.44 Hgb 14.7 Hct 44.2 MCV 81.4 MCH 27.0 MCHC 33.1 RDW 15.1 Plt Count 308 MPV 7.4 L Sodium 137 Potassium 4.1 Chloride 100 Carbon Dioxide 27 Anion Gap 10 BUN 10.4 Creatinine 0.8 Est GFR (CKD-EPI)AfAm 138.93 Est GFR (CKD-EPI)NonAf 119.87 Random Glucose 83 Calcium 8.9 Total Bilirubin 1.5 H AST 269 H ALT 221 H Alkaline Phosphatase 175 H Total Protein 7.3 Albumin 3.7 Syphilis Serology Non-reactive 06/18/20 12:53 ast elevation hcv testing + hepatic function testing Assessment: 06/18/20 12:53 benzo and opiate withdrawal Plan: valium and methadone regiments
[2020-06-18] MEDS: MELATONIN 5 MG TABLETS PO SCH (22:10)
[2020-06-18] MEDS: THIAMINE HCL 100 MG TABLET (FP) PO SCH (22:10)
[2020-06-18] MEDS: SUVOREXANT 10 MG TABLET PO PRN (22:10)
[2020-06-19] MEDS: diazePAM 5 MG TABLET PO SCH ×2 (05:16→17:47)
[2020-06-19] MEDS: hydrOXYzine PAMOATE 25 MG CAPSULE (FP) PO SCH ×5 (05:16→22:27)
[2020-06-19] MEDS ORDERED: METHADONE HCL 10 MG TABLET (FOR DETOX USE ONLY) PO ONE (10:00)
[2020-06-19] MEDS: PRENATAL VITAMINS W/ FOLIC ACID TABLET (FP) PO SCH (10:31)
[2020-06-19 12:33] LABS: ALBUMIN 3.5 g/dl (3.4-5.0); BILIRUBIN,DIRECT 0.3 mg/dL (0.0-0.2); BILIRUBIN,TOTAL 1.3 mg/dL (0.2-1); TOT PROT 6.9 g/dl (6.4-8.2)
[2020-06-19] MEDS: diazePAM 5 MG TABLET PO PRN (12:47)
--- NOTE | 2020-06-19 14:21 | PN ---
[facility] CIWA - CIWA Score Nausea/Vomitin-Mild Nausea/No Vomiting Muscle Tremors: 2 Anxiety: 2 Agitation: 2 Paroxysmal Sweats: 1-Minimal Palms Moist Orientation: 0-Oriented Tacttile Disturbances: 1-Very Mild Itch/Numbness Auditory Disturbances: 0-None Visual Disturbances: 0-None Headache: 1-Very Mild CIWA-Ar Total Score: 10 BHS COWS - Scale Resting Pulse: 2= [place] 101-120 Sweatin= No chills or Flushing Restless Observation: 1= Difficult to Sit Still Pupil Size: 1= Pupils >than Normal Bone or Joint Aches: 2= Severe Diffuse Aches Runny Nose/ Eye Tearin= Nasal Congestion GI Upset > 30mins: 1= Stomach Cramp Tremor Observation of Outstretched Hands: 2= Slight Tremor Visible Yawning Observation: 1= 1-2x During Session Anxiety or Irritability: 2=Irritable/Anxious Goose Flesh Skin: 0=Smooth Skin COWS Score: 13 S Progress Note (SOAP) Subjective: alert,irritable,anxious,interrupted sleep,tremor,pain in the body and back Objective: 06/19/20 17:36 Vital Signs Temperature 96.9 F L 06/19/20 12:52 Pulse Rate 109 H 06/19/20 12:52 Respiratory Rate 18 06/19/20 12:52 Blood Pressure 127/83 06/19/20 12:52 O2 Sat by Pulse Oximetry (%) 100 06/19/20 12:52 Laboratory Last Values WBC 5.8 K/mm3 (4.0-10.0) 06/18/20 08:00 RBC 5.44 M/mm3 (4.00-5.60) 06/18/20 08:00 Hgb 14.7 GM/dL (11.7-16.9) 06/18/20 08:00 Hct 44.2 % (35.4-49) 06/18/20 08:00 MCV 81.4 fl (80-96) 06/18/20 08:00 MCH 27.0 pg (25.7-33.7) 06/18/20 08:00 MCHC 33.1 g/dl (32.0-35.9) 06/18/20 08:00 RDW 15.1 % (11.9-15.9) 06/18/20 08:00 Plt Count 308 K/MM3 (134-434) 06/18/20 08:00 MPV 7.4 fl (7.5-11.1) L 06/18/20 08:00 Sodium 137 mmol/L (136-145) 06/18/20 08:00 Potassium 4.1 mmol/L (3.5-5.1) 06/18/20 08:00 Chloride 100 mmol/L (98-107) 06/18/20 08:00 Carbon Dioxide 27 mmol/L (21-32) 06/18/20 08:00 Anion Gap 10 MMOL/L (8-16) 06/18/20 08:00 BUN 10.4 mg/dL (7-18) 06/18/20 08:00 Creatinine 0.8 mg/dL (0.55-1.3) 06/18/20 08:00 Est GFR (CKD-EPI)AfAm 138.93 06/18/20 08:00 Est GFR (CKD-EPI)NonAf 119.87 06/18/20 08:00 Random Glucose 83 mg/dL (74-106) 06/18/20 08:00 Calcium 8.9 mg/dL (8.5-10.1) 06/18/20 08:00 Total Bilirubin 1.3 mg/dL (0.2-1) H 06/19/20 08:15 Direct Bilirubin 0.3 mg/dL (0.0-0.2) H 06/19/20 08:15 AST 86 U/L (15-37) H 06/19/20 08:15 ALT 157 U/L (13-61) H 06/19/20 08:15 Alkaline Phosphatase 156 U/L (45-117) H 06/19/20 08:15 Total Protein 6.9 g/dl (6.4-8.2) 06/19/20 08:15 Albumin 3.5 g/dl (3.4-5.0) 06/19/20 08:15 Urine Color Yellow 06/19/20 11:40 Urine Appearance Clear 06/19/20 11:40 Urine pH 8.5 (5.0-8.0) H D 06/19/20 11:40 Ur Specific [place] 1.020 (1.010-1.035) 06/19/20 11:40 Urine Protein Negative (NEGATIVE) 06/19/20 11:40 Urine Glucose (UA) Negative (NEGATIVE) 06/19/20 11:40 Urine Ketones Negative (NEGATIVE) 06/19/20 11:40 Urine Blood Negative (NEGATIVE) 06/19/20 11:40 Urine Nitrite Negative (NEGATIVE) 06/19/20 11:40 Urine Bilirubin Negative (NEGATIVE) 06/19/20 11:40 Urine Urobilinogen 1.0 mg/dL (0.2-1.0) 06/19/20 11:40 Ur Leukocyte Esterase Negative (NEGATIVE) 06/19/20 11:40 Syphilis Serology Non-reactive (NONREACTIVE) 06/18/20 08:00 COVID-19 (BUDDY) Not detected (Not Detected) 06/17/20 13:55 HIV Ag/Ab Combo Qual Negative (NEGATIVE) 06/18/20 08:20 Assessment: 06/19/20 17:37 withdrawal symptom Plan: continue detox methadone and valium regimen
[2020-06-19 16:25] LABS: PH,URINE 8.5 (5.0-8.0); URINE APPEARANCE Clear; URINE BILIRUBIN Negative (NEGATIVE); URINE COLOR Yellow; URINE GLUCOSE (UA) Negative (NEGATIVE); URINE KETONE Negative (NEGATIVE); URINE LEUK ESTERASE Negative (NEGATIVE); URINE NITRITE Negative (NEGATIVE); URINE PROTEIN Negative (NEGATIVE)
[2020-06-19] MEDS: MELATONIN 5 MG TABLETS PO SCH (22:27)
[2020-06-19] MEDS: THIAMINE HCL 100 MG TABLET (FP) PO SCH (22:27)
[2020-06-19] MEDS: SUVOREXANT 10 MG TABLET PO PRN (22:29)
[2020-06-20] MEDS: hydrOXYzine PAMOATE 25 MG CAPSULE (FP) PO SCH ×5 (05:07→22:26)
[2020-06-20] MEDS ORDERED: diazePAM 5 MG TABLET PO ONE (06:00)
[2020-06-20] MEDS ORDERED: METHADONE HCL 10 MG TABLET (FOR DETOX USE ONLY) ONE (09:33)
[2020-06-20] MEDS ORDERED: METHADONE HCL 5 MG TABLET (FOR DETOX USE ONLY) ONE (09:34)
[2020-06-20] MEDS ORDERED: METHADONE (DETOX) 10 MG, METHADONE (DETOX) 5 MG PO ONE (10:00)
[2020-06-20] MEDS: PRENATAL VITAMINS W/ FOLIC ACID TABLET (FP) PO SCH (10:13)
[2020-06-20] MEDS: diazePAM 5 MG TABLET PO PRN (10:14)
--- NOTE | 2020-06-20 13:42 | PN ---
BHS COWS - Scale Resting Pulse: 0= [place] 80 or Below Sweatin= No chills or Flushing Restless Observation: 0= Sits Still Pupil Size: 0= Normal to Room Light Bone or Joint Aches: 1= Mild Discomfort Runny Nose/ Eye Tearin= Nasal Congestion GI Upset > 30mins: 1= Stomach Cramp Tremor Observation of Outstretched Hands: 2= Slight Tremor Visible Yawning Observation: 1= 1-2x During Session Anxiety or Irritability: 2=Irritable/Anxious Goose Flesh Skin: 0=Smooth Skin COWS Score: 8 BHS Progress Note (SOAP) Subjective: alert,irritable,anxious,interrupted sleep,pain in the body, Objective: 06/20/20 13:39 Vital Signs Temperature 97.1 F L 06/20/20 08:32 Pulse Rate 49 L 06/20/20 08:32 Respiratory Rate 18 06/20/20 08:32 Blood Pressure 130/81 06/20/20 08:32 O2 Sat by Pulse Oximetry (%) 100 06/20/20 06:03 Laboratory Results - last 24 hr 06/19/20 06/19/20 08:15 11:40 Urine Color Yellow Urine Appearance Clear Urine pH 8.5 H D Ur Specific [place] 1.020 Urine Protein Negative Urine Glucose (UA) Negative Urine Ketones Negative Urine Blood Negative Urine Nitrite Negative Urine Bilirubin Negative Urine Urobilinogen 1.0 Ur Leukocyte Esterase Negative Hep C Ab Diagnostic <0.1 Laboratory Last Values WBC 5.8 K/mm3 (4.0-10.0) 06/18/20 08:00 RBC 5.44 M/mm3 (4.00-5.60) 06/18/20 08:00 Hgb 14.7 GM/dL (11.7-16.9) 06/18/20 08:00 Hct 44.2 % (35.4-49) 06/18/20 08:00 MCV 81.4 fl (80-96) 06/18/20 08:00 MCH 27.0 pg (25.7-33.7) 06/18/20 08:00 MCHC 33.1 g/dl (32.0-35.9) 06/18/20 08:00 RDW 15.1 % (11.9-15.9) 06/18/20 08:00 Plt Count 308 K/MM3 (134-434) 06/18/20 08:00 MPV 7.4 fl (7.5-11.1) L 06/18/20 08:00 Sodium 137 mmol/L (136-145) 06/18/20 08:00 Potassium 4.1 mmol/L (3.5-5.1) 06/18/20 08:00 Chloride 100 mmol/L (98-107) 06/18/20 08:00 Carbon Dioxide 27 mmol/L (21-32) 06/18/20 08:00 Anion Gap 10 MMOL/L (8-16) 06/18/20 08:00 BUN 10.4 mg/dL (7-18) 06/18/20 08:00 Creatinine 0.8 mg/dL (0.55-1.3) 06/18/20 08:00 Est GFR (CKD-EPI)AfAm 138.93 06/18/20 08:00 Est GFR (CKD-EPI)NonAf 119.87 06/18/20 08:00 Random Glucose 83 mg/dL (74-106) 06/18/20 08:00 Calcium 8.9 mg/dL (8.5-10.1) 06/18/20 08:00 Total Bilirubin 1.3 mg/dL (0.2-1) H 06/19/20 08:15 Direct Bilirubin 0.3 mg/dL (0.0-0.2) H 06/19/20 08:15 AST 86 U/L (15-37) H 06/19/20 08:15 ALT 157 U/L (13-61) H 06/19/20 08:15 Alkaline Phosphatase 156 U/L (45-117) H 06/19/20 08:15 Total Protein 6.9 g/dl (6.4-8.2) 06/19/20 08:15 Albumin 3.5 g/dl (3.4-5.0) 06/19/20 08:15 Urine Color Yellow 06/19/20 11:40 Urine Appearance Clear 06/19/20 11:40 Urine pH 8.5 (5.0-8.0) H D 06/19/20 11:40 Ur Specific [place] 1.020 (1.010-1.035) 06/19/20 11:40 Urine Protein Negative (NEGATIVE) 06/19/20 11:40 Urine Glucose (UA) Negative (NEGATIVE) 06/19/20 11:40 Urine Ketones Negative (NEGATIVE) 06/19/20 11:40 Urine Blood Negative (NEGATIVE) 06/19/20 11:40 Urine Nitrite Negative (NEGATIVE) 06/19/20 11:40 Urine Bilirubin Negative (NEGATIVE) 06/19/20 11:40 Urine Urobilinogen 1.0 mg/dL (0.2-1.0) 06/19/20 11:40 Ur Leukocyte Esterase Negative (NEGATIVE) 06/19/20 11:40 Syphilis Serology Non-reactive (NONREACTIVE) 06/18/20 08:00 COVID-19 (BUDDY) Not detected (Not Detected) 06/17/20 13:55 Hep C Ab Diagnostic <0.1 s/co ratio (0.0-0.9) 06/19/20 08:15 HIV Ag/Ab Combo Qual Negative (NEGATIVE) 06/18/20 08:20 Assessment: 06/20/20 13:40 withdrawal symptom Plan: continue detox methadone regimen,interested to go to MAT after discharge
[2020-06-20] MEDS: METHOCARBAMOL 500 MG TABLET PO PRN (17:16)
[2020-06-20] MEDS: SUVOREXANT 10 MG TABLET PO PRN (22:26)
[2020-06-20] MEDS: MELATONIN 5 MG TABLETS PO SCH (22:26)
[2020-06-20] MEDS: THIAMINE HCL 100 MG TABLET (FP) PO SCH (22:26)
[2020-06-21] MEDS: hydrOXYzine PAMOATE 25 MG CAPSULE (FP) PO SCH ×5 (05:34→22:08)
[2020-06-21] MEDS ORDERED: METHADONE HCL 10 MG TABLET (FOR DETOX USE ONLY) PO ONE (10:00)
[2020-06-21] MEDS: PRENATAL VITAMINS W/ FOLIC ACID TABLET (FP) PO SCH (10:03)
[2020-06-21] MEDS: METHOCARBAMOL 500 MG TABLET PO PRN ×2 (10:03→22:08)
--- NOTE | 2020-06-21 13:38 | PN ---
[facility] CIWA - CIWA Score Nausea/Vomitin-Mild Nausea/No Vomiting Muscle Tremors: 2 Anxiety: 2 Agitation: 2 Paroxysmal Sweats: No Perspiration Orientation: 0-Oriented Tacttile Disturbances: 1-Very Mild Itch/Numbness Auditory Disturbances: 0-None Visual Disturbances: 0-None Headache: 1-Very Mild CIWA-Ar Total Score: 9 [facility] COWS - Scale Resting Pulse: 0= [place] 80 or Below Sweatin= No chills or Flushing Restless Observation: 1= Difficult to Sit Still Pupil Size: 0= Normal to Room Light Bone or Joint Aches: 2= Severe Diffuse Aches Runny Nose/ Eye Tearin= Nasal Congestion GI Upset > 30mins: 1= Stomach Cramp Tremor Observation of Outstretched Hands: 2= Slight Tremor Visible Yawning Observation: 0= None Anxiety or Irritability: 2=Irritable/Anxious Goose Flesh Skin: 0=Smooth Skin COWS Score: 9 S Progress Note (SOAP) Subjective: alert,,irritable,anxious,interrupted sleep,tremor,pain in the body and back Objective: 06/21/20 13:36 Vital Signs Temperature 97.3 F L 06/21/20 12:47 Pulse Rate 61 06/21/20 12:47 Respiratory Rate 16 06/21/20 12:47 Blood Pressure 114/76 06/21/20 12:47 O2 Sat by Pulse Oximetry (%) 100 06/21/20 12:47 Assessment: 06/21/20 13:36 withdrawal symptom Plan: continue detox methadone regimen,valum detox finished,will give valium 5 mgs po now, patient is scheduled to be discharged in am,he will go to [facility] ,methadone [facility] ance evaluation at [facility],and has [facility] to see his medical provider in am
[2020-06-21] MEDS ORDERED: diazePAM 5 MG TABLET PO ONE (13:45)
[2020-06-21] MEDS: THIAMINE HCL 100 MG TABLET (FP) PO SCH (22:08)
[2020-06-21] MEDS: MELATONIN 5 MG TABLETS PO SCH (22:08)
[2020-06-22] MEDS: hydrOXYzine PAMOATE 25 MG CAPSULE (FP) PO SCH (05:11)
[2020-06-22] MEDS ORDERED: METHADONE HCL 5 MG TABLET (FOR DETOX USE ONLY) PO ONE (06:00)
[2020-06-22 06:31] VITALS: BP 120/77; PULSE 60; TEMP 97
--- NOTE | 2020-06-22 13:59 | PN ---
[facility] CIWA - CIWA Score Nausea/Vomitin-No Nausea/No Vomiting Muscle Tremors: None Anxiety: 1-Mildly Anxious Agitation: 0-Normal Activity Paroxysmal Sweats: No Perspiration Orientation: 0-Oriented Tacttile Disturbances: 0-None Auditory Disturbances: 0-None Visual Disturbances: 0-None Headache: 0-None Present CIWA-Ar Total Score: 1 [facility] COWS - Scale Resting Pulse: 0= [place] 80 or Below Sweatin= No chills or Flushing Restless Observation: 0= Sits Still Pupil Size: 0= Normal to Room Light Bone or Joint Aches: 0= None Runny Nose/ Eye Tearin= None GI Upset > 30mins: 0= None Tremor Observation of Outstretched Hands: 0= None Yawning Observation: 0= None Anxiety or Irritability: 1=Feels Anxious/Irritable Goose Flesh Skin: 0=Smooth Skin COWS Score: 1 [facility] Progress Note (SOAP) Subjective: alert,no complaint Objective: 06/22/20 13:57 Vital Signs Temperature 97 F L 06/22/20 06:31 Pulse Rate 60 06/22/20 06:31 Respiratory Rate 18 06/22/20 06:31 Blood Pressure 120/77 06/22/20 06:31 O2 Sat by Pulse Oximetry (%) 97 06/22/20 06:31 Assessment: 06/22/20 13:57 detox completed,no withdrawal symptom Plan: stable for discharge today,will go to [facility],and see his PMD for follow up
--- NOTE | 2020-06-22 14:09 | DS ---
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 - Physical Exam Results Vital Signs: Vital Signs Temperature 97 F L 06/22/20 06:31 Pulse Rate 60 06/22/20 06:31 Respiratory Rate 18 06/22/20 06:31 Blood Pressure 120/77 06/22/20 06:31 O2 Sat by Pulse Oximetry (%) 97 06/22/20 06:31 Pertinent Admission Physical Exam Findings: withdrawal signs and symptom Laboratory Last Values WBC 5.8 K/mm3 (4.0-10.0) 06/18/20 08:00 RBC 5.44 M/mm3 (4.00-5.60) 06/18/20 08:00 Hgb 14.7 GM/dL (11.7-16.9) 06/18/20 08:00 Hct 44.2 % (35.4-49) 06/18/20 08:00 MCV 81.4 fl (80-96) 06/18/20 08:00 MCH 27.0 pg (25.7-33.7) 06/18/20 08:00 MCHC 33.1 g/dl (32.0-35.9) 06/18/20 08:00 RDW 15.1 % (11.9-15.9) 06/18/20 08:00 Plt Count 308 K/MM3 (134-434) 06/18/20 08:00 MPV 7.4 fl (7.5-11.1) L 06/18/20 08:00 Sodium 137 mmol/L (136-145) 06/18/20 08:00 Potassium 4.1 mmol/L (3.5-5.1) 06/18/20 08:00 Chloride 100 mmol/L (98-107) 06/18/20 08:00 Carbon Dioxide 27 mmol/L (21-32) 06/18/20 08:00 Anion Gap 10 MMOL/L (8-16) 06/18/20 08:00 BUN 10.4 mg/dL (7-18) 06/18/20 08:00 Creatinine 0.8 mg/dL (0.55-1.3) 06/18/20 08:00 Est GFR (CKD-EPI)AfAm 138.93 06/18/20 08:00 Est GFR (CKD-EPI)NonAf 119.87 06/18/20 08:00 Random Glucose 83 mg/dL (74-106) 06/18/20 08:00 Calcium 8.9 mg/dL (8.5-10.1) 06/18/20 08:00 Total Bilirubin 1.3 mg/dL (0.2-1) H 06/19/20 08:15 Direct Bilirubin 0.3 mg/dL (0.0-0.2) H 06/19/20 08:15 AST 86 U/L (15-37) H 06/19/20 08:15 ALT 157 U/L (13-61) H 06/19/20 08:15 Alkaline Phosphatase 156 U/L (45-117) H 06/19/20 08:15 Total Protein 6.9 g/dl (6.4-8.2) 06/19/20 08:15 Albumin 3.5 g/dl (3.4-5.0) 06/19/20 08:15 Urine Color Yellow 06/19/20 11:40 Urine Appearance Clear 06/19/20 11:40 Urine pH 8.5 (5.0-8.0) H D 06/19/20 11:40 Ur Specific [place] 1.020 (1.010-1.035) 06/19/20 11:40 Urine Protein Negative (NEGATIVE) 06/19/20 11:40 Urine Glucose (UA) Negative (NEGATIVE) 06/19/20 11:40 Urine Ketones Negative (NEGATIVE) 06/19/20 11:40 Urine Blood Negative (NEGATIVE) 06/19/20 11:40 Urine Nitrite Negative (NEGATIVE) 06/19/20 11:40 Urine Bilirubin Negative (NEGATIVE) 06/19/20 11:40 Urine Urobilinogen 1.0 mg/dL (0.2-1.0) 06/19/20 11:40 Ur Leukocyte Esterase Negative (NEGATIVE) 06/19/20 11:40 Syphilis Serology Non-reactive (NONREACTIVE) 06/18/20 08:00 COVID-19 (BUDDY) Not detected (Not Detected) 06/17/20 13:55 Hep C Ab Diagnostic <0.1 s/co ratio (0.0-0.9) 06/19/20 08:15 HIV Ag/Ab Combo Qual Negative (NEGATIVE) 06/18/20 08:20 Vital Signs Temperature 97 F L 06/22/20 06:31 Pulse Rate 60 06/22/20 06:31 Respiratory Rate 18 06/22/20 06:31 Blood Pressure 120/77 06/22/20 06:31 O2 Sat by Pulse Oximetry (%) 97 06/22/20 06:31 - Treatment Hospital Course: Detox Protocol Followed, Detoxed Safely, Responded well, Discharged Condition Good Patient has Accepted a Rehab Referral to: declined - Medication Discharge Medications: Ambulatory Orders NK [No Known Home Medication] 02/24/18 - Diagnosis (1) Opioid dependence with withdrawal Status: Acute (2) IVDU (intravenous drug user) Status: Acute (3) Weight loss Status: Acute (4) Cannabis dependence Status: Chronic (5) Sedative, hypnotic or anxiolytic dependence with withdrawal, uncomplicated Status: Acute (6) Factor VIII deficiency Status: Acute - AMA Did Patient Leave Against Medical Advice: No
== END 2020-06-22 08:51 | disposition home or self-care (01) | DRG 773 ==
LOC: YASAS 09:57 → Y3N 14:13
PROVIDERS: ADMIT Allergy & Immunology; ATTEND Allergy & Immunology
PROC: HZ2ZZZZ Detoxification Services for Substance Abuse Treatment (ICD-10-PCS; principal; 2020-06-17)
DX: F11.23 Opioid dependence with withdrawal (principal); F13.230 Sedative, hypnotic or anxiolytic dependence with withdrawal, uncomplicated; F12.20 Cannabis dependence, uncomplicated; F17.210 Nicotine dependence, cigarettes, uncomplicated; D66 Hereditary factor VIII deficiency; R63.4 Abnormal weight loss; Z68.25 Body mass index [BMI] 25.0-25.9, adult; Z86.69 Personal history of other diseases of the nervous system and sense organs; Z86.19 Personal history of other infectious and parasitic diseases
CPT/HCPCS: 36415; 80053; 80076; 81003; 85027; 86780; 86803; 87389; J0735; Q0162; U0003